=== PATIENT | female | born 1985 | race Caucasian/White ===

== ENCOUNTER 2018-12-15 19:52 | Observation (INO) | payer OTHER ==
[2018-12-15] MEDS ORDERED: Sodium Chloride 0.9% 1000 ML 1,000 ML IV STA (20:22)
--- NOTE | 2018-12-15 20:22 | ERPHSYRPT ---
- History of Present Illness Time Seen by Provider: 12/15/18 20:19 Historian: patient, family Exam Limitations: no limitations Physician History: abd pain and distension for 3 weeks worse today with diarrhea last 2 days in 33 yr old female fibroids on recent US; abd is tender LUQ no rebound Timing/Duration: week(s) Activities at Onset: none Quality: sharpness, stabbing Abdominal Pain Onset Location: LUQ, epigastric, generalized abdomen Pain Radiation: LUQ Severity of Pain-Max: moderate Severity of Pain-Current: moderate Modifying Factors: Improves With: nothing Associated Symptoms: diarrhea, nausea Previous symptoms: no prior history Allergies/Adverse Reactions: cefaclor [From Ceclor] Allergy (Verified 12/15/18 20:29) Estrogens Adverse Reaction (Mild, Verified 12/15/18 20:29) Headache Home Medications: Buspirone HCl 5 mg [Buspar 5 mg] 10 mg PO TID 12/15/18 [History] Dextroamphetamine/Amphetamine [Dextroamp-Amphetamin 15 mg Tab] 15 mg PO BID [History] Escitalopram Oxalate 10 mg [Lexapro 10 MG] 20 mg PO DAILY 12/15/18 [History] Hydrocodone/Acetaminophen [Hydrocodone-Acetamin 5-325 mg] 5 mg PO Q4HPRN PRN [History] Levothyroxine Sodium 112 Mcg [Synthroid 112 Mcg] 115 mcg PO DAILY 12/15/18 [History] Magnesium Oxide 400 mg [Mag-Ox 400] 400 mg PO HS 12/15/18 [History] Naratriptan HCl [Amerge] 2.5 mg PO UD 12/15/18 [History] PANTOPRAZOLE 40 mg Tablet [Protonix 40MG Tablet] 40 mg PO QAM 12/15/18 [ History] Promethazine HCl 25 mg [Phenergan 25 mg] 25 mg PO Q6HPRN PRN 12/15/18 [ History] Topiramate [Trokendi Xr] 150 mg PO DAILY 12/15/18 [History] Trazodone HCl 50 mg [Desyrel 50 mg] 100 mg PO HS 12/15/18 [History] Varenicline Tartrate [Chantix] 1 mg PO DAILY 12/15/18 [History] Hx Tetanus, Diphtheria Vaccination/Date Given: No Hx Influenza Vaccination/Date Given: Yes Hx Pneumococcal Vaccination/Date Given: Yes - Review of Systems Constitutional: Fever, No Chills Eyes: No Symptoms Ears, Nose, & Throat: No Symptoms Respiratory: No Cough, No Dyspnea Cardiac: No Chest Pain, No Edema, No Syncope Abdominal/Gastrointestinal: Abdominal Pain, Nausea, Diarrhea, No Vomiting Genitourinary Symptoms: No Dysuria Musculoskeletal: No Back Pain, No Neck Pain Skin: No Rash Neurological: No Dizziness, No Focal Weakness, No Sensory Changes Psychological: No Symptoms Endocrine: No Symptoms All Other Systems: Reviewed and Negative - Past Medical History Pertinent Past Medical History: Yes Neurological History: Migraines ENT History: No Pertinent History Cardiac History: No Pertinent History Respiratory History: No Pertinent History Endocrine Medical History: No Pertinent History Musculoskeletal History: No Pertinent History GI Medical History: Colitis History: No Pertinent History Psycho-Social History: Other Female Reproductive Disorders: No Pertinent History Other Medical History: migraine headaches- complex ( hx stroke like symptoms). chronic fatigue syndrome - Past Surgical History Past Surgical History: Yes Neuro Surgical History: No Pertinent History Cardiac: No Pertinent History Respiratory: No Pertinent History Gastrointestinal: Cholecystectomy Genitourinary: No Pertinent History Musculoskeletal: Orthopedic Surgery Female Surgical History: Section Other Surgical History: TONSILS AND ADENOIDS - "CRYO SURGERY" - CARPEL TUNNEL REPAIR- right. cysts removed off of ovaries. cysts removed left ear. tissue and skin graph to left ear from neck - Social History Smoking Status: Current every day smoker How long have you smoked: 16 years Exposure to second hand smoke: Yes Drug Use: none Patient Lives Alone: No - Nursing Vital Signs Nursing Vital Signs: Initial Vital Signs Temperature 98.2 F 12/15/18 19:58 Pulse Rate 67 12/15/18 19:58 Respiratory Rate 16 12/15/18 19:58 Blood Pressure 131/81 12/15/18 19:58 O2 Sat by Pulse Oximetry 100 12/15/18 19:58 Pain Scale Pain Intensity 5 - Physical Exam General Appearance: no apparent distress, alert Eye Exam: PERRL/EOMI, eyes nml inspection Ears, Nose, Throat Exam: normal ENT inspection, pharynx normal, moist mucous membranes Neck Exam: normal inspection, non-tender, supple, full range of motion Respiratory Exam: normal breath sounds, lungs clear, No respiratory distress Cardiovascular Exam: regular rate/rhythm, normal heart sounds Gastrointestinal/Abdomen Exam: soft, tenderness, distention, No mass, No pulsatile mass, No rebound Pelvic Exam: deferred Rectal Exam: deferred Back Exam: normal inspection, normal range of motion, No CVA tenderness, No vertebral tenderness Extremity Exam: normal inspection, normal range of motion, pelvis stable Neurologic Exam: alert, oriented x 3, cooperative, normal mood/affect, nml cerebellar function, sensation nml, No motor deficits Skin Exam: normal color, warm, dry - Course Nursing assessment & vital signs reviewed: Yes EKG Interpreted by Me: Sinus Rhythm, NORMAL INTERVALS, Non-specific ST Changes - CT Exams Abdomen/Pelvis CT Interpretation: Tele-radiologist Report, Normal Appendix, No appendicitis, Other (enteritis) Ordered Tests: Active Orders 24 hr Category Date Time Status EKG-ER Only STAT Care 12/15/18 20:22 Active IV Insertion STAT Care 12/15/18 20:22 Active ABDOMEN AND PELVIS W/0 CONTRAS [CT] Stat Exams 12/15/18 20:22 Taken AMYLASE Stat Lab 12/15/18 21:45 Completed CBC W DIFF Stat Lab 12/15/18 21:45 Completed CMP Stat Lab 12/15/18 21:45 Completed CULTURE,URINE Stat Lab 12/15/18 20:30 Received HCG QUALITATIVE,SERUM Stat Lab 12/15/18 21:45 Completed LIPASE Stat Lab 12/15/18 21:45 Completed Lactic Acid Stat Lab 12/15/18 21:35 Completed TROPONIN Q3H Lab 12/15/18 21:45 Completed TROPONIN Q3H Lab 12/16/18 02:30 Ordered TROPONIN Q3H Lab 12/16/18 05:30 Ordered TROPONIN Q3H Lab 12/16/18 08:30 Ordered UA W/RFX UR CULTURE Stat Lab 12/15/18 20:30 Completed Medication Summary Discontinued Medications Generic Name Dose Route Start Last Admin Trade Name Freq PRN Reason Stop Dose Admin Diphenhydramine HCl 25 mg 12/15/18 20:23 12/15/18 21:13 Benadryl 50 Mg/Ml IV 12/15/18 20:24 25 mg STAT ONE Administration Diphenhydramine HCl Confirm 12/15/18 21:09 Benadryl 50 Mg/Ml Administered 12/15/18 21:10 Dose 50 mg .ROUTE .STK-MED ONE Diphenhydramine HCl 25 mg 12/15/18 22:40 12/15/18 22:59 Benadryl 50 Mg/Ml IV 12/15/18 22:41 25 mg STAT ONE Administration Diphenhydramine HCl Confirm 12/15/18 22:58 Benadryl 50 Mg/Ml Administered 12/15/18 22:59 Dose 50 mg .ROUTE .STK-MED ONE Sodium Chloride 1,000 mls @ 999 mls/hr 12/15/18 20:22 12/15/18 22:16 Sodium Chloride 0.9% 1000 Ml IV 12/15/18 21:22 Infused .Q1H1M STA Infusion Sodium Chloride Confirm 12/15/18 21:09 Sodium Chloride 0.9% 1000 Ml Administered 12/15/18 21:10 Dose 1,000 mls @ ud .ROUTE .STK-MED ONE Morphine Sulfate 4 mg 12/15/18 20:23 12/15/18 21:13 Morphine Sulfate 4 Mg Inj IV 12/15/18 20:24 4 mg STAT ONE Administration Morphine Sulfate Confirm 12/15/18 21:09 Morphine Sulfate 4 Mg Inj Administered 12/15/18 21:10 Dose 4 mg .ROUTE .STK-MED ONE Morphine Sulfate 4 mg 12/15/18 22:40 12/15/18 22:59 Morphine Sulfate 4 Mg Inj IV 12/15/18 22:41 4 mg STAT ONE Administration Morphine Sulfate Confirm 12/15/18 22:58 Morphine Sulfate 4 Mg Inj Administered 12/15/18 22:59 Dose 4 mg .ROUTE .STK-MED ONE Ondansetron HCl 4 mg 12/15/18 20:23 12/15/18 21:13 Zofran 4 Mg/2 Ml Vial IV 12/15/18 20:24 4 mg STAT ONE Administration Ondansetron HCl Confirm 12/15/18 21:09 Zofran 4 Mg/2 Ml Vial Administered 12/15/18 21:10 Dose 4 mg .ROUTE .STK-MED ONE Lab/Rad Data: Laboratory Result Diagrams 12/15/18 21:45 12/15/18 21:45 Laboratory Results 12/15/18 12/15/18 12/15/18 Range/Units 21:45 21:45 21:45 WBC (4.0-10.5) K/mm3 RBC (4.1-5.4) M/mm3 Hgb (12.0-16.0) gm/dl Hct (35-47) % MCV (78-100) fl MCH (26-32) pg MCHC (32-36) g/dl RDW (11.5-14.0) % Plt Count (150-450) K/mm3 MPV (6-9.5) fl Gran % (36.0-66.0) % Eos # (Auto) (0-0.5) Absolute Lymphs (auto) (1.0-4.6) Absolute Monos (auto) (0.0-1.3) Lymphocytes % (24.0-44.0) % Monocytes % (0.0-12.0) % Eosinophils % (0.00-5.0) % Basophils % (0.0-0.4) % Absolute Granulocytes (1.4-6.9) Basophils # (0-0.4) Sodium 141 (137-145) mmol/L Potassium 3.6 (3.5-5.1) mmol/L Chloride 110 H (98-107) mmol/L Carbon Dioxide 21 L (22-30) mmol/L Anion Gap 12.9 (5-15) MEQ/L BUN 7 (7-17) mg/dL Creatinine 0.54 (0.52-1.04) mg/dL Estimated GFR > 60.0 ML/MIN Glucose 93 (74-106) mg/dL Lactic Acid (0.4-2.0) Calcium 8.5 (8.4-10.2) mg/dL Total Bilirubin 0.20 (0.2-1.3) mg/dL AST 15 (14-36) U/L ALT 13 (0-35) U/L Alkaline Phosphatase 60 (38-126) U/L Troponin I < 0.012 (0.000-0.034) ng/mL Serum Total Protein 7.2 (6.3-8.2) g/dL Albumin 4.1 (3.5-5.0) g/dL Amylase 55 (30-110) U/L Lipase 62 (23-300) U/L Serum , Qual NEGATIVE (Negative) Urine Color (YELLOW) Urine Appearance (CLEAR) Urine pH (5-6) Ur Specific Bliss (1.005-1.025) Urine Protein (Negative) Urine Ketones (NEGATIVE) Urine Blood (0-5) Jamie/ul Urine Nitrite (NEGATIVE) Urine Bilirubin (NEGATIVE) Urine Urobilinogen (0-1) mg/dL Ur Leukocyte Esterase (NEGATIVE) Urine WBC (Auto) (0-5) /HPF Urine RBC (Auto) (0-2) /HPF U Epithel Cells (Auto) (FEW) /HPF Urine Bacteria (Auto) (NEGATIVE) /HPF Urine Mucus (Auto) (NEGATIVE) /HPF Urine Culture Reflexed (NO) Urine Glucose (NEGATIVE) mg/dL 12/15/18 12/15/18 12/15/18 Range/Units 21:45 21:35 20:30 WBC 7.3 (4.0-10.5) K/mm3 RBC 3.79 L (4.1-5.4) M/mm3 Hgb 11.7 L (12.0-16.0) gm/dl Hct 35.8 (35-47) % MCV 94.5 (78-100) fl MCH 30.8 (26-32) pg MCHC 32.7 (32-36) g/dl RDW 13.4 (11.5-14.0) % Plt Count 309 (150-450) K/mm3 MPV 8.5 (6-9.5) fl Gran % 49.9 (36.0-66.0) % Eos # (Auto) 0.14 (0-0.5) Absolute Lymphs (auto) 2.85 (1.0-4.6) Absolute Monos (auto) 0.64 (0.0-1.3) Lymphocytes % 39.1 (24.0-44.0) % Monocytes % 8.8 (0.0-12.0) % Eosinophils % 1.9 (0.00-5.0) % Basophils % 0.3 (0.0-0.4) % Absolute Granulocytes 3.64 (1.4-6.9) Basophils # 0.02 (0-0.4) Sodium (137-145) mmol/L Potassium (3.5-5.1) mmol/L Chloride (98-107) mmol/L Carbon Dioxide (22-30) mmol/L Anion Gap (5-15) MEQ/L BUN (7-17) mg/dL Creatinine (0.52-1.04) mg/dL Estimated GFR ML/MIN Glucose (74-106) mg/dL Lactic Acid 0.9 (0.4-2.0) Calcium (8.4-10.2) mg/dL Total Bilirubin (0.2-1.3) mg/dL AST (14-36) U/L ALT (0-35) U/L Alkaline Phosphatase (38-126) U/L Troponin I (0.000-0.034) ng/mL Serum Total Protein (6.3-8.2) g/dL Albumin (3.5-5.0) g/dL Amylase (30-110) U/L Lipase (23-300) U/L Serum , Qual (Negative) Urine Color YELLOW (YELLOW) Urine Appearance SLIGHTLY CLOUDY (CLEAR) Urine pH 6.0 (5-6) Ur Specific Bliss 1.016 (1.005-1.025) Urine Protein NEGATIVE (Negative) Urine Ketones NEGATIVE (NEGATIVE) Urine Blood SMALL (0-5) Jamie/ul Urine Nitrite NEGATIVE (NEGATIVE) Urine Bilirubin NEGATIVE (NEGATIVE) Urine Urobilinogen NEGATIVE (0-1) mg/dL Ur Leukocyte Esterase TRACE (NEGATIVE) Urine WBC (Auto) NONE (0-5) /HPF Urine RBC (Auto) 0-2 (0-2) /HPF U Epithel Cells (Auto) RARE (FEW) /HPF Urine Bacteria (Auto) NONE (NEGATIVE) /HPF Urine Mucus (Auto) SLIGHT (NEGATIVE) /HPF Urine Culture Reflexed YES (NO) Urine Glucose NEGATIVE (NEGATIVE) mg/dL - Progress Progress: improved, re-examined Progress Note: 12/15/18 23:30 pt still has some pain but is better - discussed findings with pt and Dr Romero covering and all agree best for pt to be in on obs and begin ab . Counseled pt/family regarding: lab results, diagnosis, need for follow-up, rad results - Departure Departure Disposition: Observation Clinical Impression: Abdominal pain, Enteritis, Intractable abdominal pain, Renal calculus, bilateral Condition: Good Critical Care Time: No Referrals: LUZ ELENA AMOR MD [Primary Care Provider] -
[2018-12-15] MEDS ORDERED: BENADRYL 50 MG/ML IV ONE ×2 (20:23→22:40)
[2018-12-15] MEDS ORDERED: MORPHINE SULFATE 4 MG INJ IV ONE ×2 (20:23→22:40)
[2018-12-15] MEDS ORDERED: Zofran 4 MG/2 ML VIAL IV ONE (20:23)
[2018-12-15 20:42] LABS: Appearance SLIGHTLY CLOUDY (CLEAR); Bilirubin NEGATIVE (NEGATIVE); Blood SMALL Ery/ul (0-5); Epithelial Cells RARE /HPF (FEW); Glucose NEGATIVE (NEGATIVE); Ketones NEGATIVE (NEGATIVE); Leukocyte Esterase TRACE (NEGATIVE); Mucus SLIGHT /HPF (NEGATIVE); Nitrite NEGATIVE (NEGATIVE); Protein,Urine Dip NEGATIVE (Negative); RBC 0-2 /HPF (0-2); Specific Gravity 1.016 (1.005-1.025); Urobilinogen NEGATIVE mg/dL (0-1)
[2018-12-15] MEDS ORDERED: MORPHINE SULFATE 4 MG INJ ONE ×2 (21:09→22:58)
[2018-12-15] MEDS ORDERED: BENADRYL 50 MG/ML ONE ×2 (21:09→22:58)
[2018-12-15] MEDS ORDERED: Sodium Chloride 0.9% 1000 ML 1,000 ML ONE (21:09)
[2018-12-15] MEDS ORDERED: Zofran 4 MG/2 ML VIAL ONE (21:09)
[2018-12-15 21:44] LABS: BASOPHIL % 0.3 % (0.0-0.4); Basophil (Absolute #) 0.02 (0-0.4); Eosinophil % 1.9 % (0.00-5.0); Eosinophil (Absolute #) 0.14 (0-0.5); Granulocyte Absolute (ANC) 3.64 (1.4-6.9); Granulocytes % 49.9 % (36.0-66.0); Hematocrit 35.8 % (35-47); Hemoglobin 11.7 gm/dl (12.0-16.0); Lymphocyte (Absolute #) 2.85 (1.0-4.6); Lymphocytes % 39.1 % (24.0-44.0); Mean Cell Volume 94.5 fl (78-100); Mean Corpuscular Hgb Concent. 32.7 g/dl (32-36); Mean Platelet Volume 8.5 fl (6-9.5); Monocyte (Absolute #) 0.64 (0.0-1.3); Monocytes % 8.8 % (0.0-12.0); Platelet Count 309 K/mm3 (150-450); Red Blood Count 3.79 M/mm3 (4.1-5.4); Red Cell Distribution Width 13.4 % (11.5-14.0); White Blood Count 7.3 K/mm3 (4.0-10.5)
[2018-12-15 21:47] LABS: Mean Corpuscular Hemoglobin 30.8 pg (26-32)
[2018-12-15 21:58] LABS: ALBUMIN 4.1 g/dL (3.5-5.0); ALKALINE PHOSPHATASE 60 U/L (38-126); AMYLASE 55 U/L (30-110); ANION GAP 12.9 MEQ/L (5-15); BLOOD UREA NITROGEN 7 mg/dL (7-17); CHLORIDE 110 mmol/L (98-107); Calcium 8.5 mg/dL (8.4-10.2); Carbon Dioxide 21 mmol/L (22-30); Creatinine 1 0.54 mg/dL (0.52-1.04); Glucose 93 mg/dL (74-106); LIPASE 62 U/L (23-300); Potassium 3.6 mmol/L (3.5-5.1); SGOT/AST 15 U/L (14-36); SGPT/ALT 13 U/L (0-35); SODIUM 141 mmol/L (137-145); Total Protein 7.2 g/dL (6.3-8.2)
[2018-12-16] MEDS ORDERED: NovoLIN R SQ PRN (00:46)
[2018-12-16] MEDS: Sodium Chloride 0.9% 1000 ML 1,000 ML IV SCH ×2 (01:06→08:37)
[2018-12-16] MEDS: FLAGYL 500 MG IVPB 500 MG/100 ML BAG IV SCH ×4 (01:06→18:34)
[2018-12-16] MEDS: Lexapro 10 MG PO SCH ×2 (01:50→22:43)
[2018-12-16] MEDS: DESYREL 50 MG PO SCH ×2 (01:51→22:42)
[2018-12-16] MEDS: BUSPAR 5 MG PO SCH ×4 (01:51→22:39)
[2018-12-16] MEDS: MAG-OX 400 PO SCH ×2 (01:51→22:43)
[2018-12-16] MEDS: Topamax 100 MG PO SCH ×2 (01:52→22:43)
[2018-12-16 06:13] LABS: BASOPHIL % 0.3 % (0.0-0.4); Basophil (Absolute #) 0.02 (0-0.4); Eosinophil % 2.1 % (0.00-5.0); Eosinophil (Absolute #) 0.16 (0-0.5); Granulocyte Absolute (ANC) 3.83 (1.4-6.9); Hematocrit 32.9 % (35-47); Hemoglobin 10.9 gm/dl (12.0-16.0); Lymphocyte (Absolute #) 3.06 (1.0-4.6); Lymphocytes % 39.9 % (24.0-44.0); Mean Corpuscular Hemoglobin 31.1 pg (26-32); Mean Corpuscular Hgb Concent. 33.1 g/dl (32-36); Mean Platelet Volume 8.7 fl (6-9.5); Monocyte (Absolute #) 0.59 (0.0-1.3); Monocytes % 7.7 % (0.0-12.0); Platelet Count 306 K/mm3 (150-450); Red Cell Distribution Width 13.2 % (11.5-14.0); White Blood Count 7.7 K/mm3 (4.0-10.5)
[2018-12-16 06:26] LABS: ALBUMIN 3.6 g/dL (3.5-5.0); ALKALINE PHOSPHATASE 53 U/L (38-126); BLOOD UREA NITROGEN 6 mg/dL (7-17); CHLORIDE 112 mmol/L (98-107); Calcium 8.1 mg/dL (8.4-10.2); Carbon Dioxide 19 mmol/L (22-30); Creatinine 1 0.52 mg/dL (0.52-1.04); Glucose 69 mg/dL (74-106); Potassium 3.6 mmol/L (3.5-5.1); SGOT/AST 15 U/L (14-36); SGPT/ALT 13 U/L (0-35); SODIUM 140 mmol/L (137-145); Total Protein 6.5 g/dL (6.3-8.2)
--- NOTE | 2018-12-16 09:48 | XRAY ---
Indication: Abdomen pain and distention. Multiple contiguous axial images obtained through the abdomen and pelvis without contrast as ordered. Comparison: September 26, 2014. Lung bases demonstrates minimal bibasilar dependent atelectasis. No infiltrate or effusion. Heart is not enlarged. Noncontrasted stomach and bowel loops appear nonobstructed. Normal appendix. Again previous cholecystectomy. No free fluid/air. Nonobstructing bilateral renal microcalculi, potentially obscured on previous contrasted exam. Remaining liver, pancreas, spleen adrenal glands, kidneys, ureters, bladder, uterus, and aorta appear unremarkable for noncontrast exam. Osseous structures intact. No ventral or inguinal hernias. Impression: 1. Nonobstructing bilateral renal microcalculi. 2. Remaining CT abdomen/pelvis without contrast exam is negative. Comment: Preliminary interpretation was made by [facility]. No critical discrepancy. CTDI 17.87
[2018-12-16] MEDS ORDERED: LEVOFLOXACIN 750MG/150ML D5W 750 MG/150 ML BAG IV SCH (10:00)
[2018-12-16] MEDS: Zofran 4 MG/2 ML VIAL IV PRN ×2 (10:14→15:56)
[2018-12-16] MEDS: MORPHINE SULFATE 4 MG INJ IV PRN ×2 (10:14→15:55)
[2018-12-16] MEDS ORDERED: PHENERGAN 25 MG PO PRN (10:38)
[2018-12-16] MEDS ORDERED: NON-FORMULARY ITEM (Naratriptan Hcl [Amerge] 2.5 MG) PO SCH (10:45)
[2018-12-16] MEDS ORDERED: MEDICATION INTERVENTION MC SCH ×2 (11:00)
[2018-12-16] MEDS ORDERED: SYNTHROID 112 MCG PO SCH (11:00)
[2018-12-16] MEDS: [UNRECOGNIZED DRUG - OTHER] PO SCH ×3 (11:14→23:48)
[2018-12-16] MEDS: AMPHETAMINE PO SCH ×3 (11:14→23:48)
[2018-12-16] MEDS: DEXTROAMPHETAMINE PO SCH ×3 (11:14→23:48)
[2018-12-16] MEDS: SYNTHROID 150 MCG PO SCH (11:45)
[2018-12-16] MEDS: Protonix 40MG Tablet PO SCH (11:45)
[2018-12-16] MEDS: PATIENT OWN MEDICATION PO SCH ×2 (11:45→22:59)
[2018-12-16 20:03] LABS: C. Difficile Organism NEGATIVE (NEGATIVE); Campylobacter NEGATIVE (NEGATIVE); Salmonella NEGATIVE (NEGATIVE)
[2018-12-16 20:04] LABS: Adenovirus F 40/41 NEGATIVE (NEGATIVE); Astrovirus NEGATIVE (NEGATIVE); Cyclospora cayentanensis NEGATIVE (NEGATIVE); Entamoeaba histolytica NEGATIVE (NEGATIVE); Enteroaggregative E.coli NEGATIVE (NEGATIVE); Giardia lamblia NEGATIVE (NEGATIVE); Rotavirus A NEGATIVE (NEGATIVE); Sapovirus NEGATIVE (NEGATIVE); Shiga-like toxin prod.E.coli NEGATIVE (NEGATIVE); Vibrio NEGATIVE (NEGATIVE)
[2018-12-16] MEDS: LEVOFLOXACIN 750MG/150ML D5W 750 MG/150 ML BAG IV SCH (22:40)
[2018-12-17] MEDS: FLAGYL 500 MG IVPB 500 MG/100 ML BAG IV SCH ×4 (00:33→18:13)
[2018-12-17] MEDS: Sodium Chloride 0.9% 1000 ML 1,000 ML IV SCH ×2 (03:34→14:45)
[2018-12-17] MEDS: MORPHINE SULFATE 4 MG INJ IV PRN ×2 (05:47→14:38)
--- NOTE | 2018-12-17 08:16 | PCM.NOTE ---
Date and Time: 12/17/18 08 Subjective Assessment: patient doing a little better today, had 13 stools yesterday. abdomen is much less distended and pain seems improved. Objective Exam General Appearance: no apparent distress, alert Skin Exam: normal color, warm, dry Respiratory Exam: normal breath sounds, lungs clear, No respiratory distress Cardiovascular Exam: regular rate/rhythm, normal heart sounds Gastrointestinal/Abdomen Exam: soft, No tenderness, No mass Extremity Exam: normal inspection, normal range of motion OBJECTIVE DATA Vital Signs: Vital Signs - 24 hr Temp Pulse Resp BP Pulse Ox 12/17/18 07:35 98.3 F 79 16 89/55 97 12/17/18 00:00 97.7 F 68 13 131/56 96 12/16/18 20:00 98.7 F 67 16 114/61 99 12/16/18 16:00 98.4 F 60 18 123/74 99 12/16/18 12:00 98.4 F 78 18 105/59 100 Pain Assessment - Last Documented Pain Intensity 8 Pain Scale Used 0-10 Pain Scale Intake and Output: Intake & Output 12/14/18 12/15/18 12/16/18 12/17/18 11:59 11:59 11:59 11:59 Intake Total 1096 600 Output Total 400 2600 Balance 696 -2000 Weight 82 kg 82.8 kg Lab Results: Lab Results-Last 24 Hours 12/16/18 12/16/18 Range/Units 17:58 18:42 Stool Occult Blood NEGATIVE (Negative) Stl C. cayetanensis PCR NEGATIVE (NEGATIVE) Stl Adenov F 40/41 PCR NEGATIVE (NEGATIVE) Stool Astrovirus (PCR) NEGATIVE (NEGATIVE) Stool Cryptosporidium PCR NEGATIVE (NEGATIVE) Stool EPEC (PCR) NEGATIVE (NEGATIVE) Stool EAEC (PCR) NEGATIVE (NEGATIVE) Stl E. histolytica PCR NEGATIVE (NEGATIVE) Stl P. shigelloides PCR NEGATIVE (NEGATIVE) Stool Sapovirus (PCR) NEGATIVE (NEGATIVE) St Y.enterocolitica PCR NEGATIVE (NEGATIVE) Stool Vibrio (PCR) NEGATIVE (NEGATIVE) Stl Vibrio cholerae PCR NEGATIVE (NEGATIVE) Stl Norovirus GI/GII PCR NEGATIVE (NEGATIVE) Campylobacter (PCR) NEGATIVE (NEGATIVE) C. difficile Toxin A&B NEGATIVE (NEGATIVE) Enterotoxigenic E. coli NEGATIVE (NEGATIVE) E.coli Shiga Toxins NEGATIVE (NEGATIVE) Giardia lamblia NEGATIVE (NEGATIVE) Rotavirus A (PCR) NEGATIVE (NEGATIVE) Salmonella (PCR) NEGATIVE (NEGATIVE) Shigella (PCR) NEGATIVE (NEGATIVE) Radiology Exams: Radiology Procedures Category Date Time Status ABDOMEN AND PELVIS W/0 CONTRAS [CT] Stat Exams 12/15/18 20:22 Completed Assessment/Plan (1) Enteritis Current Visit: Yes Status: Acute Assessment & Plan: continue fluids, levaquin and flagyl at this time. stool culture is negative Code(s): K52.9 - NONINFECTIVE GASTROENTERITIS AND COLITIS, UNSPECIFIED (2) Abdominal pain Current Visit: Yes Status: Acute Code(s): R10.9 - UNSPECIFIED ABDOMINAL PAIN
[2018-12-17] MEDS: PATIENT OWN MEDICATION PO SCH (09:19)
[2018-12-17] MEDS: BUSPAR 5 MG PO SCH ×3 (09:19→22:37)
[2018-12-17] MEDS: Protonix 40MG Tablet PO SCH (09:19)
[2018-12-17] MEDS: SYNTHROID 150 MCG PO SCH (09:19)
[2018-12-17] MEDS: [UNRECOGNIZED DRUG - OTHER] PO SCH ×2 (09:21→11:15)
[2018-12-17] MEDS: AMPHETAMINE PO SCH ×2 (09:21→11:15)
[2018-12-17] MEDS: DEXTROAMPHETAMINE PO SCH ×2 (09:21→11:15)
[2018-12-17] MEDS ORDERED: NON-FORMULARY ITEM (Varenicline Tartrate [Chantix] 1 MG) PO SCH (10:00)
--- NOTE | 2018-12-17 10:45 | HP ---
HISTORY OF PRESENT ILLNESS: This is a 33 year-old patient of Dr. Schuster who presented to the emergency department. She reports that she has had abdominal pain for the past week which she thought was due to her uterine fibroid. She also reports feeling like her abdomen is distended like she is nine months . Monday morning she started to have diarrhea that looked leslye and oily. She reports that she also had lower abdominal pain that was worse on the left side and kept getting worse so she decided to come into the emergency department. She reports the pain radiated to her back. She put herself on clear liquid diet but was still having problems with diarrhea, abdominal pain as well as nausea. She denies any vomiting. She reports her highest temperature at home was 99.8F. She denies any sick contacts. Her only travel was to [facility] Monday through Monday as her daughter had broken her arm. She reports she does not have regular periods because she had a uterine ablation but she noticed a large blood clot from her vagina on Monday. REVIEW OF SYSTEMS: As noted in the history of present illness. PAST MEDICAL HISTORY: Chronic fatigue syndrome. Hypothyroidism after thyroidectomy. Migraine. Anxiety. PAST SURGICAL HISTORY: Cholecystectomy. Total thyroid removal. Uterine thermal ablation. Tonsillectomy and adenoidectomy. section x3. Carpal tunnel surgery. HOME MEDICATIONS: Please see the medication reconciliation sheet which I reviewed. ALLERGIES: CEFACLOR, ESTROGEN. SOCIAL HISTORY: Her three children and significant other live with her. She reports she is trying to quit smoking by taking Chantix. She drinks alcohol one time per month. FAMILY HISTORY: Her mother is living and had uterine cancer and had multiple stomach problems. Her father is living and has bowel issues as well. PHYSICAL EXAMINATION: VITAL SIGNS: Temperature current 97.9F, temperature max 98.2F, heart rate 67 to 78, respiratory rate 16 to 18, blood pressure 94 to 121 over 55 to 84. Oxygen saturation 99% on room air. GENERAL: The patient is a pleasant talkative lady lying in bed in no acute distress. CVS: She has a regular rate and rhythm. No murmurs, gallops or rubs. ABDOMEN: She has hyperactive bowel sounds, mild tenderness in the right and left lower quadrant. No guarding. No rigidity. EXTREMITIES: No clubbing, cyanosis or edema. SKIN: Warm, dry and intact. LABORATORY DATA AND TESTS: On admission her white blood cell count was 7.3, hemoglobin 11.7, PLT count 309,000. CMP carbon dioxide 19, glucose 69. UA negative. Urine culture in lab. She had CT scan of her abdomen and pelvis which was read as dilated small bowel loops. Please see the radiologist dictation for the full report. ASSESSMENT AND PLAN: 1) ENTERITIS: Will continue with clear fluids as tolerated. I have ordered a GI panel as well as stool for occult blood. She reported she had a colonoscopy two years ago with Dr. Benton. Will continue with IV fluids and pain management. 2) HYPOTHYROIDISM: Will continue the home dose of levothyroxine. 3) CHRONIC FATIGUE: Continue her home medications.
[2018-12-17] MEDS: Lexapro 10 MG PO SCH (22:35)
[2018-12-17] MEDS: DESYREL 50 MG PO SCH (22:36)
[2018-12-17] MEDS: Topamax 100 MG PO SCH (22:37)
[2018-12-17] MEDS: MAG-OX 400 PO SCH (22:38)
[2018-12-17] MEDS: LEVOFLOXACIN 750MG/150ML D5W 750 MG/150 ML BAG IV SCH (22:38)
[2018-12-18] MEDS: FLAGYL 500 MG IVPB 500 MG/100 ML BAG IV SCH ×4 (00:43→18:20)
[2018-12-18] MEDS: NORCO 5/325 MG PO PRN ×2 (01:00→21:21)
[2018-12-18] MEDS: Sodium Chloride 0.9% 1000 ML 1,000 ML IV SCH (03:41)
[2018-12-18] MEDS: [UNRECOGNIZED DRUG - OTHER] PO SCH ×2 (08:35→12:18)
[2018-12-18] MEDS: DEXTROAMPHETAMINE PO SCH ×2 (08:35→12:18)
[2018-12-18] MEDS: AMPHETAMINE PO SCH ×2 (08:35→12:18)
[2018-12-18] MEDS: BUSPAR 5 MG PO SCH ×3 (09:11→21:20)
[2018-12-18] MEDS: Acidophilus TABLET PO SCH (09:12)
[2018-12-18] MEDS: SYNTHROID 150 MCG PO SCH (09:12)
[2018-12-18] MEDS: Protonix 40MG Tablet PO SCH (09:12)
[2018-12-18] MEDS: PATIENT OWN MEDICATION PO SCH (09:12)
--- NOTE | 2018-12-18 09:17 | PCM.NOTE ---
Date and Time: 12/18/18912 Subjective Assessment: Pt slept last night form 2 am on, but had 10 stools yesterday and last night. C /o lower abd pain that is constant, and sometimes worse in RLQ. 4-9/10. Per RN she passed 2 kidney stones yesterday. Tolerating po but has diarrhea after eating. - Review of Systems Constitutional: No Fever Abdominal/Gastrointestinal: Abdominal Pain, Diarrhea Objective Exam General Appearance: no apparent distress, alert (wakes to touch) Neurologic Exam: oriented x 3, cooperative Skin Exam: normal color, warm, dry, No rash Ears, Nose, Throat Exam: moist mucous membranes Respiratory Exam: normal breath sounds, lungs clear, No crackles/rales, No rhonchi, No wheezing Cardiovascular Exam: regular rate/rhythm, normal heart sounds, No murmur Gastrointestinal/Abdomen Exam: soft, tenderness (RLQ, marked), rebound (RLQ), No normal bowel sounds (hypoactive but present), No distention, No mass, No guarding Extremity Exam: normal inspection, No pedal edema, No swelling Back Exam: normal inspection, No rash OBJECTIVE DATA Vital Signs: Vital Signs - 24 hr Temp Pulse Resp BP Pulse Ox 12/18/18 06:52 98.6 F 77 18 96/56 97 12/18/18 03:00 99 F 69 18 96/55 97 12/17/18 23:00 99.6 F 71 18 118/69 97 12/17/18 19:00 99.5 F 70 16 111/62 98 12/17/18 15:15 97.8 F 63 18 114/56 96 12/17/18 11:36 97.9 F 71 16 82/50 97 Pain Assessment - Last Documented Pain Intensity 5 Pain Scale Used 0-10 Pain Scale Intake and Output: Intake & Output 12/15/18 12/16/18 12/17/18 12/18/18 11:59 11:59 11:59 11:59 Intake Total 1096 4163 2376 Output Total 400 2600 2750 Balance 696 1563 -374 Weight 82 kg 82.8 kg 81 kg Assessment/Plan (1) Enteritis Current Visit: Yes Status: Acute Assessment & Plan: No distinct findings on CT; wonder if could have reactive colitis d/t renal stones. Day #3 of levaquin and flagyl. Tolerating po well but still having stools (although slightly less than the previous day). Rechecking labs; if elevated WBC would consider re-CT in light of rebound tenderness to recheck her appendix. Code(s): K52.9 - NONINFECTIVE GASTROENTERITIS AND COLITIS, UNSPECIFIED (2) Renal calculus, bilateral Current Visit: Yes Status: Acute Assessment & Plan: Continue to observe for passed stones. Code(s): N20.0 - CALCULUS OF KIDNEY
[2018-12-18 10:27] LABS: ALBUMIN 3.2 g/dL (3.5-5.0); ALKALINE PHOSPHATASE 49 U/L (38-126); ANION GAP 14.1 MEQ/L (5-15); BILIRUBIN,TOTAL < 0.10 mg/dL (0.2-1.3); BLOOD UREA NITROGEN 9 mg/dL (7-17); CHLORIDE 113 mmol/L (98-107); Calcium 8.1 mg/dL (8.4-10.2); Carbon Dioxide 17 mmol/L (22-30); Glucose 115 mg/dL (74-106); Potassium 3.5 mmol/L (3.5-5.1); SGOT/AST 15 U/L (14-36); SGPT/ALT 15 U/L (0-35); SODIUM 141 mmol/L (137-145)
[2018-12-18] MEDS ORDERED: Sodium Chloride 0.9% 1000 ML 1,000 ML IV STA (10:41)
[2018-12-18 10:55] LABS: Hematocrit 33.8 % (35-47); Mean Cell Volume 95.2 fl (78-100); Mean Corpuscular Hgb Concent. 32.5 g/dl (32-36); Mean Platelet Volume 8.9 fl (6-9.5); Platelet Count 289 K/mm3 (150-450); Red Blood Count 3.55 M/mm3 (4.1-5.4); Red Cell Distribution Width 13.3 % (11.5-14.0); White Blood Count 7.5 K/mm3 (4.0-10.5)
[2018-12-18 10:59] LABS: Mean Corpuscular Hemoglobin 30.9 pg (26-32)
[2018-12-18] MEDS: Lactated Ringers 1,000 ML IV SCH (12:18)
[2018-12-18] MEDS: LEVOFLOXACIN 750MG/150ML D5W 750 MG/150 ML BAG IV SCH (21:17)
[2018-12-18] MEDS: Topamax 100 MG PO SCH (21:18)
[2018-12-18] MEDS: MAG-OX 400 PO SCH (21:18)
[2018-12-18] MEDS: Lexapro 10 MG PO SCH (21:19)
[2018-12-18] MEDS: DESYREL 50 MG PO SCH (21:20)
[2018-12-19] MEDS: FLAGYL 500 MG IVPB 500 MG/100 ML BAG IV SCH ×3 (02:26→11:08)
[2018-12-19] MEDS: Lactated Ringers 1,000 ML IV SCH (04:03)
[2018-12-19 05:36] LABS: ALBUMIN 3.5 g/dL (3.5-5.0); ALKALINE PHOSPHATASE 52 U/L (38-126); ANION GAP 13.4 MEQ/L (5-15); BLOOD UREA NITROGEN 10 mg/dL (7-17); CHLORIDE 112 mmol/L (98-107); Calcium 8.7 mg/dL (8.4-10.2); Carbon Dioxide 18 mmol/L (22-30); Glucose 87 mg/dL (74-106); Potassium 3.7 mmol/L (3.5-5.1); SGOT/AST 16 U/L (14-36); SGPT/ALT 13 U/L (0-35); SODIUM 139 mmol/L (137-145); Total Protein 6.4 g/dL (6.3-8.2)
--- NOTE | 2018-12-19 08:27 | PCM.NOTE ---
Date and Time: 12/19/18824 Subjective Assessment: patient continues to complain of abdominal pain, in right lower, left lower and right upper abdomen. her diarrhea is improving, she reports passing small kidney stones although there were no ureteral stones on ct scan. Objective Exam General Appearance: no apparent distress, alert Neurologic Exam: alert, oriented x 3, cooperative, normal mood/affect, nml cerebellar function, sensation nml, No motor deficits Skin Exam: normal color, warm, dry Respiratory Exam: normal breath sounds, lungs clear, No respiratory distress Cardiovascular Exam: regular rate/rhythm Gastrointestinal/Abdomen Exam: soft, normal bowel sounds, tenderness (left lower , right lower and right upper abdomen mildly tender), No guarding, No rebound Extremity Exam: normal inspection, normal range of motion OBJECTIVE DATA Vital Signs: Vital Signs - 24 hr Temp Pulse Resp BP Pulse Ox 12/19/18 07:24 98 F 70 18 108/69 97 12/19/18 03:00 97.6 F 64 18 99/57 94 L 12/18/18 23:00 98.3 F 65 16 113/64 98 12/18/18 19:00 98.8 F 82 18 120/73 99 12/18/18 15:00 98.4 F 80 18 111/65 95 12/18/18 11:00 76 18 103/56 97 Pain Assessment - Last Documented Pain Intensity 7 Pain Scale Used [employer] Intake and Output: Intake & Output 12/16/18 12/17/18 12/18/18 12/19/18 11:59 11:59 11:59 11:59 Intake Total 1096 4163 2376 3548 Output Total 400 2600 3550 2900 Balance 696 1563 -1174 648 Weight 82 kg 82.8 kg 81 kg 81.2 kg Lab Results: Lab Results-Last 24 Hours 12/18/18 12/18/18 12/19/18 Range/Units 09:35 10:41 04:40 WBC 7.5 (4.0-10.5) K/mm3 RBC 3.55 L (4.1-5.4) M/mm3 Hgb 11.0 L (12.0-16.0) gm/dl Hct 33.8 L (35-47) % MCV 95.2 (78-100) fl MCH 30.9 (26-32) pg MCHC 32.5 (32-36) g/dl RDW 13.3 (11.5-14.0) % Plt Count 289 (150-450) K/mm3 MPV 8.9 (6-9.5) fl Sodium 141 139 (137-145) mmol/L Potassium 3.5 3.7 (3.5-5.1) mmol/L Chloride 113 H 112 H (98-107) mmol/L Carbon Dioxide 17 L 18 L (22-30) mmol/L Anion Gap 14.1 13.4 (5-15) MEQ/L BUN 9 10 (7-17) mg/dL Creatinine 0.60 0.60 (0.52-1.04) mg/dL Estimated GFR > 60.0 > 60.0 ML/MIN Glucose 115 H 87 (74-106) mg/dL Calcium 8.1 L 8.7 (8.4-10.2) mg/dL Total Bilirubin < 0.10 L 0.10 L (0.2-1.3) mg/dL AST 15 16 (14-36) U/L ALT 15 13 (0-35) U/L Alkaline Phosphatase 49 52 (38-126) U/L Serum Total Protein 6.0 L 6.4 (6.3-8.2) g/dL Albumin 3.2 L 3.5 (3.5-5.0) g/dL TSH 3rd Generation 13.700 H (0.47-4.68) mIU/L Assessment/Plan (1) Enteritis Current Visit: Yes Status: Acute Assessment & Plan: on levaquin and flagyl, stool dna specimen negative. labs reassuring other than elevated tsh, she is on synthroid and will need repeated when not hospitalized. no obvious cause, advised to make npo and get surgical consult. would have to consider IBD, will get esr, crp and check IBD panel. Code(s): K52.9 - NONINFECTIVE GASTROENTERITIS AND COLITIS, UNSPECIFIED (2) Abdominal pain Current Visit: Yes Status: Acute Code(s): R10.9 - UNSPECIFIED ABDOMINAL PAIN
[2018-12-19] MEDS: BUSPAR 5 MG PO SCH ×2 (08:48→15:34)
[2018-12-19] MEDS: [UNRECOGNIZED DRUG - OTHER] PO SCH ×2 (08:48→11:08)
[2018-12-19] MEDS: DEXTROAMPHETAMINE PO SCH ×2 (08:48→11:08)
[2018-12-19] MEDS: AMPHETAMINE PO SCH ×2 (08:48→11:08)
[2018-12-19] MEDS: Acidophilus TABLET PO SCH (08:48)
[2018-12-19] MEDS: PATIENT OWN MEDICATION PO SCH (08:48)
[2018-12-19] MEDS: SYNTHROID 150 MCG PO SCH (08:48)
[2018-12-19] MEDS: Protonix 40MG Tablet PO SCH (08:48)
[2018-12-19] MEDS: NORCO 5/325 MG PO PRN (12:42)
[2018-12-19] MEDS ORDERED: DIFLUCAN PO ONE (16:00)
--- NOTE | 2018-12-19 16:13 | PCM.DS ---
Discharge Summary Date of Admission: 12/16/18 00:25 Admitting Physician: LUZ ELENA AMOR Consults: Consults on Case 12/19/18 08:57 Consult Surgery ROUTINE Primary Care Provider: LUZ ELENA AMOR Allergies Allergies cefaclor [From Ceclor] Allergy (Verified 12/15/18 20:29) Estrogens Adverse Reaction (Mild, Verified 12/15/18 20:29) Headache Hospital Summary - Hospital Course Hospital Course: was admitted with abdominal pain and diarrhea, ct scan showed enteritis and nothing acute, pain has improved. she has passed small renal calculi, she is toleraring po intake, esr was normal. IBD panel is pending, will see Dr Kate as an outpatient due to pain and no obvious etiology of diarrhea, gi pathogen panel was negative. - Vitals & Intake/Output Vital Signs: Vital Signs Temperature 98.4 F 12/19/18 12:22 Pulse Rate 68 12/19/18 12:22 Respiratory Rate 18 12/19/18 12:22 Blood Pressure 90/53 12/19/18 12:22 O2 Sat by Pulse Oximetry 98 12/19/18 12:22 Intake & Output: Intake & Output 12/17/18 12/18/18 12/19/18 12/20/18 11:59 11:59 11:59 11:59 Intake Total 4163 2376 3548 0 Output Total 2600 3550 2900 200 Balance 1563 -1174 648 -200 Weight 82.8 kg 81 kg 81.2 kg - Lab Result Diagrams: 12/18/18 10:41 12/19/18 04:40 Lab Results-Last 24 Hrs: Lab Results-Last 24 Hours 12/19/18 12/19/18 Range/Units 04:40 04:40 ESR 14 (0-20) mm/hr Sodium 139 (137-145) mmol/L Potassium 3.7 (3.5-5.1) mmol/L Chloride 112 H (98-107) mmol/L Carbon Dioxide 18 L (22-30) mmol/L Anion Gap 13.4 (5-15) MEQ/L BUN 10 (7-17) mg/dL Creatinine 0.60 (0.52-1.04) mg/dL Estimated GFR > 60.0 ML/MIN Glucose 87 (74-106) mg/dL Calcium 8.7 (8.4-10.2) mg/dL Total Bilirubin 0.10 L (0.2-1.3) mg/dL AST 16 (14-36) U/L ALT 13 (0-35) U/L Alkaline Phosphatase 52 (38-126) U/L Serum Total Protein 6.4 (6.3-8.2) g/dL Albumin 3.5 (3.5-5.0) g/dL Micro Results-Entire Visit: Microbiology 12/15/18 20:30 Urine Culture - Final Clean Catch Midstream MIXED NOAH; 3 OR MORE TYPES. NO PREDOMINANT ORGANISM. NO FURTHER WORKUP. PLEASE RESUBMIT IF CLINICALLY INDICATED. Discharge Exam General Appearance: no apparent distress, alert Respiratory Exam: normal breath sounds, lungs clear, No respiratory distress Cardiovascular Exam: regular rate/rhythm, normal heart sounds Gastrointestinal/Abdomen Exam: soft, No tenderness, No mass Extremity Exam: normal inspection, normal range of motion Final Diagnosis/Problem List - Final Discharge Diagnosis/Problem (1) Enteritis Current Visit: Yes Status: Acute Code(s): K52.9 - NONINFECTIVE GASTROENTERITIS AND COLITIS, UNSPECIFIED (2) Abdominal pain Current Visit: Yes Status: Acute Code(s): R10.9 - UNSPECIFIED ABDOMINAL PAIN (3) Renal calculus, bilateral Current Visit: Yes Status: Acute Code(s): N20.0 - CALCULUS OF KIDNEY - Discharge Disposition: Home, Self-Care Condition: Good Prescriptions: New Lactobacillus Casei/Folic Acid [Restora Rx Capsule] 1 each PO DAILY #30 capsule Continue Buspirone HCl 5 mg [Buspar 5 mg] 10 mg PO TID Promethazine HCl 25 mg [Phenergan 25 mg] 25 mg PO Q6HPRN PRN PRN Reason: Nausea Varenicline Tartrate [Chantix] 1 mg PO BID No Action Naratriptan HCl [Amerge] 2.5 mg PO UD Escitalopram Oxalate 10 mg [Lexapro 10 MG] 20 mg PO HS PANTOPRAZOLE 40 mg Tablet [Protonix 40MG Tablet] 40 mg PO QAM Magnesium Oxide 400 mg [Mag-Ox 400] 400 mg PO HS Dextroamphetamine/Amphetamine [Dextroamp-Amphetamin 15 mg Tab] 15 mg PO BID Trazodone HCl 50 mg [Desyrel 50 mg] 100 mg PO HS Topiramate [Trokendi Xr] 150 mg PO HS Levothyroxine Sodium 150 Mcg [Synthroid 150 Mcg] 150 mcg PO DAILY Instructions: Irritable Bowel Syndrome, Kidney Stones (DC), Sasabe Diet, Gastritis (DC) Follow up with: LUZ ELENA AMOR MD [Primary Care Provider] - 12/27/18 11:30 am SALVATORE KATE [ACTIVE STAFF] - 12/20/18 10:00 am (AT [facility] )
[2018-12-19 16:25] VITALS: BP 106/59; PULSE 88; O2SAT 96
[2018-12-20 21:18] LABS: Calculi Composition See Result Note:
== END 2018-12-19 17:45 | disposition home or self-care (01) ==
LOC: ED 19:52 → MED SURG 12-16 00:25
PROVIDERS: ADMIT Family Medicine; ATTEND Family Medicine
DX: K52.9 Noninfective gastroenteritis and colitis, unspecified (principal); R10.9 Unspecified abdominal pain; N20.0 Calculus of kidney; E03.9 Hypothyroidism, unspecified; R53.82 Chronic fatigue, unspecified; Z79.899 Other long term (current) drug therapy
CPT/HCPCS: 36000; 36415; 74176; 80053; 81001; 81025; 81479; 82150; 82272; 82360; 82397; 83520; 83605; 83690; 84443; 84484; 85025; 85027; 85652; 86140; 87086; 87507; 88346; 93005; 96360; 96374; 96375; 96376; 99285; G0378; J1200; J1956; J2270; J2405; A9270-GY

== ENCOUNTER 2020-05-30 16:39 | Emergency (ER) | payer OTHER ==
[2020-05-30] MEDS ORDERED: Zofran 4 MG/2 ML VIAL ONE (17:09)
[2020-05-30] MEDS ORDERED: Sodium Chloride 0.9% 1000 ML 1,000 ML ONE (17:10)
[2020-05-30] MEDS ORDERED: Sodium Chloride 0.9% 1000 ML 1,000 ML IV STA (17:27)
[2020-05-30] MEDS ORDERED: TYLENOL 325 MG PO ONE (17:28)
[2020-05-30] MEDS ORDERED: Zofran 4 MG/2 ML VIAL IV ONE (17:28)
[2020-05-30] MEDS ORDERED: TYLENOL 325 MG ONE (17:36)
[2020-05-30 17:43] VITALS: O2SAT 97
[2020-05-30 18:12] LABS: Absolute Neutrophil Ct (ANC) 4.81 (1.4-6.9); BASOPHIL % 0.2 % (0.0-0.4); Basophil (Absolute #) 0.02 (0-0.4); Eosinophil % 2.1 % (0.00-5.0); Eosinophil (Absolute #) 0.18 (0-0.5); Hematocrit 40.6 % (35-47); Hemoglobin 13.2 gm/dl (12.0-16.0); Lymphocyte (Absolute #) 2.84 (1.0-4.6); Lymphocytes % 33.4 % (24.0-44.0); Mean Cell Volume 93.8 fl (78-100); Mean Corpuscular Hemoglobin 30.5 pg (26-32); Mean Corpuscular Hgb Concent. 32.5 g/dl (32-36); Mean Platelet Volume 8.9 fl (7.5-11.0); Monocyte (Absolute #) 0.66 (0.0-1.3); Monocytes % 7.8 % (0.0-12.0); Neutrophil % 56.5 % (36.0-66.0); Platelet Count 327 K/mm3 (150-450); Red Blood Count 4.33 M/mm3 (4.1-5.4); Red Cell Distribution Width 13.3 % (11.5-14.0); White Blood Count 8.5 K/mm3 (4.0-10.5)
[2020-05-30 18:16] LABS: Appearance SLIGHTLY CLOUDY (CLEAR); Bilirubin NEGATIVE (NEGATIVE); Blood NEGATIVE Ery/ul (0-5); Epithelial Cells RARE /HPF (FEW); Glucose NEGATIVE (NEGATIVE); Ketones NEGATIVE (NEGATIVE); Leukocyte Esterase MODERATE (NEGATIVE); Mucus SLIGHT /HPF (NEGATIVE); Nitrite NEGATIVE (NEGATIVE); Protein,Urine Dip NEGATIVE (Negative); Specific Gravity 1.023 (1.005-1.025); Urobilinogen NEGATIVE mg/dL (0-1); WBC 0-2 /HPF (0-5)
[2020-05-30 18:19] LABS: Bacteria RARE /HPF (NEGATIVE)
[2020-05-30 18:26] LABS: ALBUMIN 4.2 g/dL (3.5-5.0); ALKALINE PHOSPHATASE 56 U/L (38-126); ANION GAP 10.2 MEQ/L (5-15); BLOOD UREA NITROGEN 9 mg/dL (7-17); CHLORIDE 107 mmol/L (98-107); Calcium 8.4 mg/dL (8.4-10.2); Carbon Dioxide 24 mmol/L (22-30); Creatinine 1 0.64 mg/dL (0.52-1.04); EST GLOMERULAR FILTRATION RATE > 60.0 ML/MIN; Glucose 88 mg/dL (74-106); MAGNESIUM 2.1 mg/dL (1.6-2.3); Potassium 3.4 mmol/L (3.5-5.1); SGOT/AST 18 U/L (14-36); SGPT/ALT 10 U/L (0-35); SODIUM 138 mmol/L (137-145); Total Protein 7.2 g/dL (6.3-8.2)
[2020-05-30 18:54] LABS: INFLUENZA A NEGATIVE (NEGATIVE); INFLUENZA B NEGATIVE (NEGATIVE); RESPIRATORY SYNCTIAL VIRUS NEGATIVE (Negative)
--- NOTE | 2020-05-30 20:01 | ERPHSYRPT ---
- History of Present Illness Time Seen by Provider: 05/30/20 16:59 Source: patient Exam Limitations: no limitations Patient Subjective Stated Complaint: Dizziness Triage Nursing Assessment: Patient brought back to ED via w/c and transferred self to bed. Patient A+O X 3. Patient's skin pink, warm and dry. Patient complains of Dizziness, headache, sore throat, vomiting, SOB on exertion. Patient states her symptoms started on Monday. Lungs clear a/p rivka. Physician History: 34 years old female presented in the ER with chief complaint of generalized body aches, sore throat, congestion, wet to dry cough, mild shortness of breath, nausea and occasional abdominal pain with some dizziness and lightheadedness. Patient report this is been going on for the last 5 days with gradual worsening. Denies any sick contact. No fever but chills. Generalized weakness and fatigue. Feels exhausted/drained with no energy to do her routine activities. Timing/Duration: day(s) (5), gradual onset, worse Cough Quality/Degree: mild, dry cough Possible Cause: no prior episodes Modifying Factors: Improves With: activity, exertion Associated Symptoms: chills, cough, dizziness, headache, muscle aches, nasal congestion, shortness of breath, sore throat Allergies/Adverse Reactions: cefaclor [From Ceclor] Allergy (Verified 05/30/20 16:50) Estrogens Adverse Reaction (Mild, Verified 05/30/20 16:50) Headache Home Medications: Buspirone HCl 5 mg [Buspar 5 mg] 10 mg PO TID 12/15/18 [History] Dextroamphetamine/Amphetamine [Dextroamp-Amphetamin 15 mg Tab] 15 mg PO BID 12/15/18 [History] Escitalopram Oxalate 10 mg [Lexapro 10 MG] 20 mg PO HS 12/15/18 [History] Magnesium Oxide 400 mg [Mag-Ox 400] 400 mg PO HS 12/15/18 [History] Naratriptan HCl [Amerge] 2.5 mg PO UD 12/15/18 [History] PANTOPRAZOLE 40 mg Tablet [Protonix 40MG Tablet] 40 mg PO QAM 12/15/18 [History] Promethazine HCl 25 mg [Phenergan 25 mg] 25 mg PO Q6HPRN PRN 12/15/18 [History] Topiramate [Trokendi Xr] 150 mg PO HS 12/15/18 [History] Trazodone HCl 50 mg [Desyrel 50 mg] 100 mg PO HS 12/15/18 [History] Varenicline Tartrate [Chantix] 1 mg PO BID 12/15/18 [History] Levothyroxine Sodium 150 Mcg [Synthroid 150 Mcg] 150 mcg PO DAILY 12/16/18 [History] Hx Tetanus, Diphtheria Vaccination/Date Given: No Hx Influenza Vaccination/Date Given: Yes Hx Pneumococcal Vaccination/Date Given: Yes Immunizations Up to Date: Yes Travel Risk - International Travel Have you traveled outside of the country in past 3 weeks: No - Coronavirus Screening Are you exhibiting any of the following symptoms?: Yes Symptoms: Shortness of Breath, Vomiting/Diarrhea, Loss of Taste or Smell, Headaches/Body Aches/Fatigue Close contact with a COVID-19 positive Pt in past 14-21 Days: No - Review of Systems Constitutional: Chills, Fatigue, Malaise, Weakness Eyes: No Symptoms Ears, Nose, & Throat: Nose Congestion, Throat Pain Respiratory: Cough, Dyspnea Cardiac: No Symptoms Abdominal/Gastrointestinal: Abdominal Pain, Nausea Genitourinary Symptoms: No Symptoms Musculoskeletal: Myalgias Skin: No Symptoms Neurological: Dizziness, Headache Psychological: No Symptoms Endocrine: No Symptoms Hematologic/Lymphatic: No Symptoms Immunological/Allergic: No Symptoms - Past Medical History Pertinent Past Medical History: Yes Neurological History: Migraines ENT History: No Pertinent History Cardiac History: No Pertinent History Respiratory History: No Pertinent History Endocrine Medical History: No Pertinent History Musculoskeletal History: No Pertinent History GI Medical History: Colitis History: No Pertinent History Psycho-Social History: Other Female Reproductive Disorders: Abnormal Uterine Bleeding, Fibroids, Menstrual Problems Other Medical History: migraine headaches- complex ( hx stroke like symptoms). chronic fatigue syndrome - Past Surgical History Past Surgical History: Yes Neuro Surgical History: No Pertinent History Cardiac: No Pertinent History Respiratory: No Pertinent History Gastrointestinal: Cholecystectomy Genitourinary: No Pertinent History Musculoskeletal: Orthopedic Surgery Female Surgical History: Section Other Surgical History: TONSILS AND ADENOIDS - "CRYO SURGERY" uterine ablation- CARPEL TUNNEL REPAIR- right. cysts removed off of ovaries. cysts removed left ear. tissue and skin graph to left ear from neck - Social History Smoking Status: Current every day smoker How long have you smoked: 20 yrs Exposure to second hand smoke: Yes (outside) Drug Use: none Patient Lives Alone: No - Female History Hx Last Menstrual Period: ablatopm Hx Now: No (unkn) - Nursing Vital Signs Nursing Vital Signs: Initial Vital Signs Temperature 99.2 F 05/30/20 16:51 Pain Scale Pain Intensity 0 - Physical Exam General Appearance: no apparent distress, alert Eye Exam: PERRL/EOMI, eyes nml inspection Ears, Nose, Throat Exam: normal ENT inspection, TMs normal, pharyngeal erythema Neck Exam: normal inspection, non-tender, supple, full range of motion Respiratory Exam: normal breath sounds, lungs clear, No chest tenderness Cardiovascular Exam: regular rate/rhythm, normal heart sounds Gastrointestinal/Abdomen Exam: soft, normal bowel sounds, No tenderness Extremity Exam: normal inspection, normal range of motion Neurologic Exam: alert, oriented x 3, cooperative Skin Exam: normal color, warm, dry SpO2 Interpretation: normal SpO2: 97 O2 Delivery: Room Air Ordered Tests: Active Orders 24 hr Category Date Time Status IV Insertion STAT Care 05/30/20 17:27 Active CHEST 1 VIEW (PORTABLE) Stat Exams 05/30/20 17:27 Taken BLOOD CULTURE Stat Lab 05/30/20 18:00 Received CBC W DIFF Stat Lab 05/30/20 18:00 Completed CMP Stat Lab 05/30/20 18:00 Completed HCG,QUALITATIVE URINE Stat Lab 05/30/20 18:00 Completed Lactic Acid Stat Lab 05/30/20 18:10 Completed MAGNESIUM Stat Lab 05/30/20 18:00 Completed UA W/RFX UR CULTURE Stat Lab 05/30/20 18:00 Completed Medication Summary Discontinued Medications Generic Name Dose Route Start Last Admin Trade Name Mauricioq PRN Reason Stop Dose Admin Acetaminophen 975 mg 05/30/20 17:28 05/30/20 17:40 Tylenol 325 Mg PO 05/30/20 17:29 975 mg STAT ONE Administration Acetaminophen Confirm 05/30/20 17:36 Tylenol 325 Mg Administered 05/30/20 17:37 Dose 975 mg .ROUTE .STK-MED ONE Sodium Chloride Confirm 05/30/20 17:10 Sodium Chloride 0.9% 1000 Ml Administered 05/30/20 17:11 Dose 1,000 mls @ ud .ROUTE .STK-MED ONE Sodium Chloride 1,000 mls @ 999 mls/hr 05/30/20 17:27 05/30/20 18:36 Sodium Chloride 0.9% 1000 Ml IV 05/30/20 18:27 Infused .Q1H1M STA Infusion Ondansetron HCl Confirm 05/30/20 17:09 Zofran 4 Mg/2 Ml Vial Administered 05/30/20 17:10 Dose 4 mg .ROUTE .STK-MED ONE Ondansetron HCl 4 mg 05/30/20 17:28 05/30/20 17:35 Zofran 4 Mg/2 Ml Vial IV 05/30/20 17:29 4 mg STAT ONE Administration Lab/Rad Data: Laboratory Result Diagrams 05/30/20 18:00 05/30/20 18:00 Laboratory Results 05/30/20 05/30/20 05/30/20 Range/Units 18:10 18:08 18:00 WBC (4.0-10.5) K/mm3 RBC (4.1-5.4) M/mm3 Hgb (12.0-16.0) gm/dl Hct (35-47) % MCV (78-100) fl MCH (26-32) pg MCHC (32-36) g/dl RDW (11.5-14.0) % Plt Count (150-450) K/mm3 MPV (7.5-11.0) fl Gran % (36.0-66.0) % Eos # (Auto) (0-0.5) Absolute Lymphs (auto) (1.0-4.6) Absolute Monos (auto) (0.0-1.3) Lymphocytes % (24.0-44.0) % Monocytes % (0.0-12.0) % Eosinophils % (0.00-5.0) % Basophils % (0.0-0.4) % Absolute Granulocytes (1.4-6.9) Basophils # (0-0.4) Sodium (137-145) mmol/L Potassium (3.5-5.1) mmol/L Chloride (98-107) mmol/L Carbon Dioxide (22-30) mmol/L Anion Gap (5-15) MEQ/L BUN (7-17) mg/dL Creatinine (0.52-1.04) mg/dL Estimated GFR ML/MIN Glucose (74-106) mg/dL Lactic Acid 2.2 H (0.4-2.0) Calcium (8.4-10.2) mg/dL Magnesium (1.6-2.3) mg/dL Total Bilirubin (0.2-1.3) mg/dL AST (14-36) U/L ALT (0-35) U/L Alkaline Phosphatase (38-126) U/L Serum Total Protein (6.3-8.2) g/dL Albumin (3.5-5.0) g/dL Urine Color (YELLOW) Urine Appearance (CLEAR) Urine pH (5-6) Ur Specific [place] (1.005-1.025) Urine Protein (Negative) Urine Ketones (NEGATIVE) Urine Blood (0-5) Jamie/ul Urine Nitrite (NEGATIVE) Urine Bilirubin (NEGATIVE) Urine Urobilinogen (0-1) mg/dL Ur Leukocyte Esterase (NEGATIVE) Urine WBC (Auto) (0-5) /HPF Urine RBC (Auto) (0-2) /HPF U Epithel Cells (Auto) (FEW) /HPF Urine Bacteria (Auto) (NEGATIVE) /HPF Urine Mucus (Auto) (NEGATIVE) /HPF Urine Culture Reflexed (NO) Urine Glucose (NEGATIVE) mg/dL Urine HCG, Qual NEGATIVE (Negative) Influenza Type A Ag NEGATIVE (NEGATIVE) Influenza Type B Ag NEGATIVE (NEGATIVE) RSV (PCR) NEGATIVE (Negative) 05/30/20 05/30/20 05/30/20 Range/Units 18:00 18:00 18:00 WBC 8.5 (4.0-10.5) K/mm3 RBC 4.33 (4.1-5.4) M/mm3 Hgb 13.2 (12.0-16.0) gm/dl Hct 40.6 (35-47) % MCV 93.8 (78-100) fl MCH 30.5 (26-32) pg MCHC 32.5 (32-36) g/dl RDW 13.3 (11.5-14.0) % Plt Count 327 (150-450) K/mm3 MPV 8.9 (7.5-11.0) fl Gran % 56.5 (36.0-66.0) % Eos # (Auto) 0.18 (0-0.5) Absolute Lymphs (auto) 2.84 (1.0-4.6) Absolute Monos (auto) 0.66 (0.0-1.3) Lymphocytes % 33.4 (24.0-44.0) % Monocytes % 7.8 (0.0-12.0) % Eosinophils % 2.1 (0.00-5.0) % Basophils % 0.2 (0.0-0.4) % Absolute Granulocytes 4.81 (1.4-6.9) Basophils # 0.02 (0-0.4) Sodium 138 (137-145) mmol/L Potassium 3.4 L (3.5-5.1) mmol/L Chloride 107 (98-107) mmol/L Carbon Dioxide 24 (22-30) mmol/L Anion Gap 10.2 (5-15) MEQ/L BUN 9 (7-17) mg/dL Creatinine 0.64 (0.52-1.04) mg/dL Estimated GFR > 60.0 ML/MIN Glucose 88 (74-106) mg/dL Lactic Acid (0.4-2.0) Calcium 8.4 (8.4-10.2) mg/dL Magnesium 2.1 (1.6-2.3) mg/dL Total Bilirubin 0.20 (0.2-1.3) mg/dL AST 18 (14-36) U/L ALT 10 (0-35) U/L Alkaline Phosphatase 56 (38-126) U/L Serum Total Protein 7.2 (6.3-8.2) g/dL Albumin 4.2 (3.5-5.0) g/dL Urine Color YELLOW (YELLOW) Urine Appearance SLIGHTLY CLOUDY (CLEAR) Urine pH 6.0 (5-6) Ur Specific [place] 1.023 (1.005-1.025) Urine Protein NEGATIVE (Negative) Urine Ketones NEGATIVE (NEGATIVE) Urine Blood NEGATIVE (0-5) Jamie/ul Urine Nitrite NEGATIVE (NEGATIVE) Urine Bilirubin NEGATIVE (NEGATIVE) Urine Urobilinogen NEGATIVE (0-1) mg/dL Ur Leukocyte Esterase MODERATE (NEGATIVE) Urine WBC (Auto) 0-2 (0-5) /HPF Urine RBC (Auto) NONE (0-2) /HPF U Epithel Cells (Auto) RARE (FEW) /HPF Urine Bacteria (Auto) RARE (NEGATIVE) /HPF Urine Mucus (Auto) SLIGHT (NEGATIVE) /HPF Urine Culture Reflexed NO (NO) Urine Glucose NEGATIVE (NEGATIVE) mg/dL Urine HCG, Qual (Negative) Influenza Type A Ag (NEGATIVE) Influenza Type B Ag (NEGATIVE) RSV (PCR) (Negative) - Progress Progress: improved, re-examined Air Movement: good Progress Note: 05/30/20 20:13 34 years old is evaluated for flulike symptoms for the last 5 days. She is given fluid bolus along with Zofran and Tylenol, on reevaluation feeling somewhat better. Broad work-up was done which is grossly negative for any acute findings. COVID-19 testing is obtained and pending at present. Patient is not in any distress. Maintaining oxygen saturation at room air around 97%. No tachypneic or tachycardic. I believe patient has viral etiologies symptoms, recommended supportive care and outpatient follow-up. Discussed signs symptoms of worsening needing return to ER which she seems understanding. Stable for discharge. Blood Culture(s) Obtained: Yes Antibiotics given: No Counseled pt/family regarding: lab results, diagnosis, need for follow-up, rad results, smoking cessation - Departure Departure Disposition: Home Clinical Impression: Viral syndrome Condition: Stable Critical Care Time: No Referrals: LUZ ELENA AMOR MD [Primary Care Provider] - Follow Up with PCP/3 days Instructions: Viral Syndrome (DC) Additional Instructions: Drink plenty of fluids. Take Tylenol as needed. Take Zofran as needed for nausea and vomiting. Follow-up with your primary care physician for reevaluation. Follow contact/droplet precautions until your COVID-19 testing is back. Prescriptions: Ondansetron ODT 4 MG [Zofran Odt 4 mg] 4 mg PO Q6H PRN PRN #10 tab.rapdis PRN Reason: Vomiting
[2020-05-30 20:24] VITALS: BP 110/58; PULSE 64
--- NOTE | 2020-05-30 21:13 | XRAY ---
Indication: Pneumonia. Suspect Covid 19. Comparison: July 25, 2018. Portable chest again demonstrates normal heart, lungs, and bony thorax with incidental left midlung calcified granuloma.
== END 2020-05-30 20:18 | disposition home or self-care (01) ==
LOC: ED 16:39
DX: B34.9 Viral infection, unspecified (principal)
CPT/HCPCS: 36000; 36415; 71045; 80053; 81001; 83605; 83735; 84703; 85025; 87040; 87631; 96360; 96374; 99284; U0003; J2405; A9270-GY

== ENCOUNTER 2020-11-01 19:45 | Emergency (ER) | payer OTHER ==
--- NOTE | 2020-11-01 21:08 | ERPHSYRPT ---
- History of Present Illness Time Seen by Provider: 11/01/20 20:15 Source: patient Exam Limitations: no limitations Patient Subjective Stated Complaint: pt states that she had a cyst come up on her ear monday Triage Nursing Assessment: pt ambulated into the er; pt is axo x4; c/o abcess to left ear; pt states 8/10 pain to left ear; pt states pain is a pressure; pt states she has hx of abcess to left ear; pt states that she went to [facility] yesterday; pt states that the er md drained ear; pt states that she has started to take clindamycin; abscess 1.7 cm x 1.5 cm; no drainage present; abscess is red and warm to the touch; pt states that she has had chills all day and declines fever; pt is hypertensive Physician History: Patient is a 35-year-old female who has had on the penis of the external ear on the left a small nodule for some time approximately a year ago it did get infected and was drained it recurred but did not get infected until a few days ago when it became red and swollen. She went to [facility] and they aspirated it with a 30-gauge needle today it is bigger and more painful. Timing/Duration: day(s) (3) Quality: painful Severity: moderate Location: other (Left ear) Possible Causes: no cause identified Allergies/Adverse Reactions: cefaclor [From [facility]] Allergy (Verified 11/01/20 19:57) Estrogens Adverse Reaction (Mild, Verified 11/01/20 19:57) Headache Home Medications: Buspirone HCl 5 mg [Buspar 5 mg] 20 mg PO TID 12/15/18 [History] Dextroamphetamine/Amphetamine [Dextroamp-Amphetamin 15 mg Tab] 15 mg PO BID 12/15/18 [History] Magnesium Oxide 400 mg [Mag-Ox 400] 400 mg PO HS 12/15/18 [History] PANTOPRAZOLE 40 mg Tablet [Protonix 40MG Tablet] 40 mg PO QAM 12/15/18 [History] Trazodone HCl 50 mg [Desyrel 50 mg] 100 mg PO HS 12/15/18 [History] Levothyroxine Sodium 150 Mcg [Synthroid 150 Mcg] 120 mcg PO DAILY 12/16/18 [History] Clindamycin HCl 300 mg PO Q6H 11/01/20 [History] PARoxetine HCl [Paxil] 20 mg PO 11/01/20 [History] Hx Tetanus, Diphtheria Vaccination/Date Given: Yes Hx Influenza Vaccination/Date Given: Yes Hx Pneumococcal Vaccination/Date Given: No Travel Risk - International Travel Have you traveled outside of the country in past 3 weeks: No - Coronavirus Screening Are you exhibiting any of the following symptoms?: No Close contact with a COVID-19 positive Pt in past 14-21 Days: No - Review of Systems Constitutional: No Fever, No Chills Eyes: No Symptoms Ears, Nose, & Throat: No Symptoms Respiratory: No Cough, No Dyspnea Cardiac: No Chest Pain, No Edema, No Syncope Abdominal/Gastrointestinal: No Abdominal Pain, No Nausea, No Vomiting, No Diarrhea Genitourinary Symptoms: No Dysuria Musculoskeletal: No Back Pain, No Neck Pain Skin: Other (Abscess), No Rash Neurological: No Dizziness, No Focal Weakness, No Sensory Changes Psychological: No Symptoms Endocrine: No Symptoms All Other Systems: Reviewed and Negative - Past Medical History Pertinent Past Medical History: Yes Neurological History: Migraines ENT History: No Pertinent History Cardiac History: No Pertinent History Respiratory History: No Pertinent History Endocrine Medical History: No Pertinent History Musculoskeletal History: No Pertinent History GI Medical History: Colitis, GERD History: No Pertinent History Psycho-Social History: Anxiety, Depression, Other Female Reproductive Disorders: Abnormal Uterine Bleeding, Fibroids, Menstrual Problems Other Medical History: migraine headaches- complex ( hx stroke like symptoms). chronic fatigue syndrome - Past Surgical History Past Surgical History: Yes Neuro Surgical History: No Pertinent History Cardiac: No Pertinent History Respiratory: No Pertinent History Gastrointestinal: Cholecystectomy Genitourinary: No Pertinent History Musculoskeletal: Orthopedic Surgery Female Surgical History: Section, Tubal Ligation Other Surgical History: TONSILS AND ADENOIDS - "CRYO SURGERY" uterine ablation- CARPEL TUNNEL REPAIR- right. cysts removed off of ovaries. cysts removed left ear. tissue and skin graph to left ear from neck. c- section x3 - Social History Smoking Status: Current every day smoker How long have you smoked: 20 yrs Exposure to second hand smoke: Yes (outside) Drug Use: none Patient Lives Alone: No - Female History Hx Now: No (unsure) - Nursing Vital Signs Nursing Vital Signs: Initial Vital Signs Temperature 98.8 F 11/01/20 20:03 Pulse Rate 85 11/01/20 20:03 Respiratory Rate 16 11/01/20 20:03 Blood Pressure 151/91 11/01/20 20:03 O2 Sat by Pulse Oximetry 98 11/01/20 20:03 Pain Scale Pain Intensity 8 - Physical Exam General Appearance: no apparent distress, mild distress, alert Eye Exam: PERRL/EOMI, eyes nml inspection Ears, Nose, Throat Exam: normal ENT inspection, pharynx normal, moist mucous membranes Neck Exam: normal inspection, non-tender, supple, full range of motion Respiratory Exam: normal breath sounds, lungs clear, No respiratory distress Cardiovascular Exam: regular rate/rhythm, normal heart sounds Gastrointestinal/Abdomen Exam: soft, mass, No tenderness Back Exam: normal inspection, normal range of motion, No CVA tenderness, No vertebral tenderness Extremity Exam: normal inspection, normal range of motion Neurologic Exam: alert, oriented x 3, cooperative, normal mood/affect, sensation nml, No motor deficits Skin Exam: normal color, warm, dry, other (There is a obvious abscess the left pinna of the external ear this was incised.) SpO2 Interpretation: normal SpO2: 98 O2 Delivery: Room Air Procedures - Incision and Drainage Time of Procedure: 20:30 Site: Left external ear Anesthesia: 1% lidocaine w/epi cc's of anesthesia: 2 Blade Size: 11 I & D Procedure: hibiclens prep, sterile drapes applied, culture obtained Results: moderate amount pus - Course Nursing assessment & vital signs reviewed: Yes - Progress Progress: improved Progress Note: 11/01/20 21:08 Patient was instructed to continue antibiotics started last night at [facility] which consist of Cleocin. - Departure Departure Disposition: Home Clinical Impression: Abscess of external ear, left Condition: Stable Critical Care Time: No Referrals: LUZ ELENA AMOR MD [Primary Care Provider] -
[2020-11-01 21:14] VITALS: BP 130/84; PULSE 84; O2SAT 97
[2020-11-01] MEDS ORDERED: XYLOCAINE 1% HCL 20 ML MDV IJ ONE (21:24)
[2020-11-01] MEDS ORDERED: XYLOCAINE 2% HCL 20 ML MDV IJ ONE (21:27)
== END 2020-11-01 21:23 | disposition home or self-care (01) ==
LOC: ED 19:45
DX: H60.02 Abscess of left external ear (principal)
CPT/HCPCS: 87070; 99283

== ENCOUNTER 2021-04-21 06:07 | Day surgery (SDC) | payer OTHER ==
[2021-04-21] MEDS: Lactated Ringers 1,000 ML IV SCH (06:35)
[2021-04-21 09:24] VITALS: BP 116/78; PULSE 72; O2SAT 100
--- NOTE | 2021-04-21 11:36 | OP ---
SURGERY DATE/TIME: 04/21/2021 0827 PREOPERATIVE DIAGNOSES: 1) Epigastric abdominal pain. 2) Melena. POSTOPERATIVE DIAGNOSIS: Mild gastritis. PROCEDURE: EGD. SURGEON: Cody Benton M.D. ANESTHESIA: MAC by Lucian Mckenzie CRNA. ESTIMATED BLOOD LOSS: Minimal. SPECIMENS: Two cold forceps biopsies from the gastric antrum were taken and sent for Helicobacter pylori testing. DESCRIPTION OF PROCEDURE: After informed written consent was obtained, the patient was taken to the endoscopy suite. She was placed in the left lateral decubitus position and a bite block was inserted. Anesthesia was titrated to the desired level of consciousness. The endoscope was inserted into the posterior oropharynx and under direct visualization the esophagus was traversed. The esophageal mucosa had a normal mucosal appearance free of any lesions or defects. The gastroesophageal junction and gastric mucosa likewise had a normal appearance upon entering the stomach. The gastric mucosa was rugated with no obvious ulcerations or bleeding. There were gastritis changes that were mild in the gastric antrum. The pylorus was traversed and the first and second portion of the duodenum were within normal limits. Two cold forceps biopsies were taken from the gastric antrum and sent for Helicobacter pylori testing with minimal blood loss. No other abnormalities were appreciable. The scope was removed. The patient was transferred to the recovery room in good condition. I have advised that she follow up in a week for pathology results.
== END 2021-04-21 09:30 | disposition home or self-care (01) ==
LOC: SDC 06:07
PROVIDERS: ATTEND Family Medicine
DX: K29.70 Gastritis, unspecified, without bleeding (principal); R10.13 Epigastric pain; K92.1 Melena
CPT/HCPCS: 84703; 88305

== ENCOUNTER 2024-04-01 07:35 | Day surgery (SDC) | payer OTHER ==
[2024-04-01] MEDS ORDERED: Lactated Ringers 1,000 ML IV ONE (07:42)
[2024-04-01] MEDS: Lactated Ringers 1,000 ML IV SCH (07:51)
[2024-04-01] MEDS ORDERED: TYLENOL EXTRA STRENGTH 500 MG ONE (07:54)
[2024-04-01] MEDS ORDERED: NEURONTIN ONE (07:54)
[2024-04-01] MEDS ORDERED: celeBREX 100 MG ONE (07:54)
[2024-04-01] MEDS ORDERED: Decadron 4 MG ONE (07:54)
[2024-04-01] MEDS ORDERED: CLINDAMYCIN-D5W 900 MG/50 ML*** 900 MG/50 ML BAG IV ONE (07:54)
[2024-04-01] MEDS: NEURONTIN PO ONE (07:55)
[2024-04-01] MEDS: CLINDAMYCIN-D5W 900 MG/50 ML*** 900 MG/50 ML BAG IV SCH (07:55)
[2024-04-01] MEDS: TYLENOL EXTRA STRENGTH 500 MG PO ONE (07:55)
[2024-04-01] MEDS: celeBREX 100 MG PO ONE (07:55)
[2024-04-01] MEDS: Decadron 4 MG PO ONE (07:55)
[2024-04-01 07:56] LABS: HCG URINE TEST NEGATIVE (NEGATIVE)
--- NOTE | 2024-04-01 08:05 | HP ---
HISTORY OF PRESENT ILLNESS: The patient has had pain and drainage pilonidal area and drained, pain a little better. The patient also has preauricular cyst area as well. PAST MEDICAL HISTORY: Hypothyroidism, anxiety, and depression. PAST SURGICAL HISTORY: Tonsillectomy and adenoidectomy, cholecystectomy, , the patient had carpal tunnel release and had cyst on the face and ear with skin graft in the past, uterine thermal ablation, ovarian cyst and tubal in the past. FAMILY HISTORY: Heart disease. SOCIAL HISTORY: 1 pack/day smoker. No alcohol abuse. MEDICATIONS: Vitamin B2, Flonase, Zyrtec, trazodone, potassium chloride, sertraline, buspirone, levothyroxine, Adderall. ALLERGIES: Ceclor. REVIEW OF SYSTEMS: Twelve systems reviewed. Pertinent for all medical problems as noted above. No chest pain or palpitations currently. PHYSICAL EXAMINATION: VITAL SIGNS: Height 5 feet 6 inches. BMI 33.25. GENERAL: No acute distress. HEENT: Sclerae nonicteric. Extraocular movements intact. NECK: No JVD. CHEST: Equal excursion, nonlabored breathing. CARDIOVASCULAR: Regular rate and rhythm. ABDOMEN: Soft. EXTREMITIES: No cyanosis or edema. NEUROLOGIC: Alert and oriented, moving all extremities symmetrically. PSYCHIATRIC: Appropriate mood and affect. SKIN: Preauricular cyst or nodule. In her pilonidal area, she has induration but this is a pilonidal cyst. IMPRESSION: Ruptured pilonidal cyst disease. Recommend excision, possible packing or flap closure pending operative findings. Risks explained in detail including but not limited to bleeding or infection; risk of aches and pains; risk of infection; risk of nonhealing; risk of delayed healing or wound dehiscence possibly requiring packing, even a delayed period with initial closure dehisce as well as majority healed, 90% healing 8 to 12 weeks, 5% take longer to heal, 5% failure to heal and may require other intervention or referral; risk of anesthesia, DVT, PE, pneumonia; risk of aches and pains, bleeding but not limited to. Otherwise, continue medications for anxiety and hypothyroidism. The patient at a later date consider excision of preauricular cyst or nodule. Otherwise, will proceed excisional biopsy of pilonidal cyst, possible packing, possible flap closure. Clindamycin in the OR. At a later date, excisional biopsy of the preauricular cyst or nodule. Risks of that include not limited to bleeding or infection; risk of nerve irritation or scar formation; risk of dry eye or chewing dysfunction but not limited to. We will proceed with excisional biopsy of pilonidal cyst, possible packing, possible flap closure as an outpatient.
[2024-04-01 08:15] VITALS: RESP 16
[2024-04-01] MEDS ORDERED: Xylocaine-Mpf 2% 5 Ml Vial ONE (10:19)
[2024-04-01] MEDS ORDERED: Zofran 4 MG/2 ML VIAL ONE ×2 (10:19→11:33)
[2024-04-01] MEDS ORDERED: DIPRIVAN 200 MG/20 ML IV ONE (10:19)
[2024-04-01] MEDS ORDERED: SUBLIMAZE 100 MCG/2 ML ONE ×2 (10:19→11:38)
[2024-04-01] MEDS ORDERED: Decadron 4 MG INJ ONE (10:19)
[2024-04-01] MEDS ORDERED: TORAdol 30 mg Injection ONE (10:19)
[2024-04-01] MEDS ORDERED: BRIDION 200MG/2ML IV ONE (10:19)
[2024-04-01] MEDS ORDERED: ROCURONIUM BROMIDE IV ONE (10:19)
[2024-04-01] MEDS ORDERED: Sensorcaine 0.25% 10 ML ONE (10:22)
[2024-04-01] MEDS ORDERED: Hydromorphone 1 mg/ml Injection ONE (11:55)
[2024-04-01] MEDS ORDERED: Compazine 10 MG/2 ML ONE (12:10)
[2024-04-01 12:58] VITALS: TEMP 96.9
[2024-04-01 13:51] VITALS: BP 98/65; PULSE 70; O2SAT 95
--- NOTE | 2024-04-02 09:36 | OP ---
SURGERY DATE/TIME: 04/01/2024 3974 [id number] PREOPERATIVE DIAGNOSIS: History of infected ruptured pilonidal cyst site in need of excision. POSTOPERATIVE DIAGNOSIS: History of infected ruptured pilonidal cyst site in need of excision. PROCEDURE: Excision and biopsy of ruptured infected pilonidal cyst site (approximately 5 x 3 x 2 to 2.5 cm deep). SURGEON: Ed Sanchez MD ANESTHESIA: General. ESTIMATED BLOOD LOSS: Minimal. INDICATIONS: As noted above, consent obtained. DESCRIPTION OF PROCEDURE AND FINDINGS: The patient was taken to the operating room. General anesthesia was introduced. Prepped and draped in usual sterile fashion. After official time-out, no disagreement in planned procedure. Marking out around the several pits in her pilonidal area, dissection was carried down. I originally was hoping there would be limited inflammation or infection to possibly develop flap closure; however, on dissecting down, there was a large abscess off to the patient's right that required extending the wound out that direction given the degree. I was able to get underneath the granulation cavity, passed the specimen off. It measured 5 cm long x 3 cm wide x 2 to 2.5 cm deep. Given the degree of infection, it was felt this would most certainly dehisce trying to close with any flaps. It was felt safest to go ahead and leave it open and pack it. This had been explained as a possibility to the patient in the office and understanding that most of these heal; 90% heal in 8 to 12 weeks, 5% take longer, 5% fail to heal and might require other treatments, procedures or referrals. She had been explained this preoperatively prior to scheduling the procedure. The patient's wound, good hemostasis was noted. Marcaine 0.25% locally injected along and around the area. It was packed with some saline-soaked Kerlix to be removed tomorrow and repacked with normal saline wet-to-dry to the base of the wound on a daily basis, daily and as needed. Findings discussed with the family in the waiting area. The family was not out there originally, but later the family was gathered in the room and I spoke with the family, updated them on the findings. Continue local wound care. We will see her back in the office next week. They were discussed the options, and she so deemed that she felt she needed some sort of VAC system, she could be referred to the hospital's wound therapy department, but at this time, continue local wound care. She was transferred to the recovery room in stable condition.
== END 2024-04-01 13:40 | disposition home or self-care (01) ==
LOC: SDC 07:35
PROVIDERS: ATTEND Surgery
DX: L05.01 Pilonidal cyst with abscess (principal)
CPT/HCPCS: 81025; 93005; J1100; J1170; J1885; J2405; J2704; J3010; A9270-GY

== ENCOUNTER 2024-07-05 11:17 | Emergency (ER) | payer OTHER ==
[2024-07-05 11:30] VITALS: TEMP 98.3
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
[2024-07-05] MEDS ORDERED: Adacel Vial IM ONE (12:08)
[2024-07-05] MEDS: Adacel Vial IM ONE (12:10)
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
[2024-07-05 12:20] LABS: Absolute Neutrophil Ct (ANC) 8.47 x10^3/uL (1.56-6.13); BASOPHIL % 0.4 % (0.1-1.2); Basophil (Absolute #) 0.04 x10^3/uL (0.01-0.08); Eosinophil % 0.6 % (0.7-5.8); Eosinophil (Absolute #) 0.06 x10^3/uL (0.04-0.36); Hematocrit 38.5 % (34.1-44.9); Hemoglobin 12.8 g/dL (11.2-15.7); IMMATURE GRAN # 0.04 x10^3u/L (0.001-0.031); IMMATURE GRAN % 0.4 % (0.001-0.429); Lymphocytes % 12.7 % (19.3-51.7); Mean Cell Volume 90.2 fL (79.4-94.8); Mean Corpuscular Hgb Concent. 33.2 g/dL (32.2-35.5); Mean Platelet Volume 8.4 fL (9.4-12.3); Monocyte (Absolute #) 0.29 x10^3/uL (0.24-0.86); Monocytes % 2.8 % (4.7-12.5); Neutrophil % 83.1 % (34.0-71.1); Platelet Count 409 x10^3/uL (182-369); Red Blood Count 4.27 x10^6/uL (3.93-5.22); Red Cell Distribution Width 14.2 % (11.7-14.4); White Blood Count 10.2 x10^3/uL (3.98-10.04)
[2024-07-05 12:31] LABS: HCG SERUM TEST NEGATIVE (NEGATIVE)
[2024-07-05 12:34] LABS: ALBUMIN 4.8 g/dL (3.5-5.0); BILIRUBIN,TOTAL 0.3 mg/dL (0.2-1.3); Calcium 9.6 mg/dL (8.4-10.2); Creatinine 1 0.63 mg/dL (0.52-1.04); EST GLOMERULAR FILTRATION RATE 114.9 ML/MIN; Potassium 4.1 mmol/L (3.5-5.1)
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
[2024-07-05 13:34] LABS: Appearance Clear (Clear); Bacteria None Seen /HPF (None Seen); Bilirubin Negative (Negative); Blood Negative (Negative); Epithelial Cells None Seen /HPF (None Seen); Glucose, Urine Negative (Negative); Hyaline Casts NONE SEEN /LPF (0-2); Ketones Negative (Negative); Leukocyte Esterase Negative (Negative); Nitrite Negative (Negative); Ph 6.5 (4.6-8.0); Protein,Urine Dip Negative (Negative); RBC 0-2 /HPF (0-5); Specific Gravity <=1.005 (1.005-1.030); Urobilinogen 0.2 mg/dL (0.2); WBC 0-2 /HPF (0-5)
[2024-07-05] MEDS ORDERED: TYLENOL EXTRA STRENGTH 500 MG ONE (14:29)
[2024-07-05] MEDS: TYLENOL EXTRA STRENGTH 500 MG PO STA (14:30)
--- NOTE | 2024-07-05 15:28 | PCM.CONS ---
History of Present Illness - Neuro Consultation Date of Consultation Date: 07/05/24 ED Arrival Date & Time: 07/05/24 11:17 Providers: Attending Provider: ED Provider: MARYANNE WATKINS Consulting Provider: LESTER DYKES DO cc:: The requesting physician will be sent a copy of the consult. - History of Present Illness HPI: The patient is a 38F Review of Systems - Review of Systems Review of Systems (Narrative): Pertinent positive and negative findings as per HPI. All other systems negative. - Past Medical History Past Medical History: Yes Neurological History: Migraines ENT History: No Pertinent History Cardiac History: No Pertinent History Respiratory History: No Pertinent History Endocrine Medical History: Other Musculoskelatal History: No Pertinent History GI Medical History: Colitis, GERD, Ulcer History: No Pertinent History Pyscho-Social History: Anxiety, Depression, Other Reproductive Disorders: Abnormal Uterine Bleeding, Fibroids, Menstrual Problems, Other Comment: migraine headaches- complex ( hx stroke like symptoms). chronic fatigue syndrome. ptsd - Female History Hx Last Menstrual Period: ablation Are you now?: No - Past Surgical History Past Surgical History: Yes Neuro Surgical History: No Pertinent History Cardiac History: No Pertinent History Respiratory Surgery: No Pertinent History GI Surgical History: Cholecystectomy Genitourinary Surgical Hx: No Pertinent History Musculskeletal Surgical Hx: Orthopedic Surgery Female Surgical History: Section, Tubal Ligation Other Surgical History: TONSILS AND ADENOIDS - "CRYO SURGERY" uterine ablation- CARPEL TUNNEL REPAIR- right. cysts removed off of ovaries. cysts removed left ear. tissue and skin graph to left ear from neck. c- section x3. Thyroidectomy. uterine ablation. carpel tunnel. Cyst removed from tailbone - Social History Smoking Status: Current every day smoker How long have you smoked: 20 yrs Exposure to second hand smoke: Yes Alcohol: Occasionally Drug Use: none - Social Determinants of Health Will the patient participate in the screening: Declined to provide Do you worry about a steady place to live?: No Do you have any problems with any of the following?: No known problems In the past 12 months,have you had to go without utilities?: No Have you or anyone in your house had to go without enough: No Transportation Issues: No Has anyone in your support network made you feel unsafe?: No Physical Exam - Vital Signs Vital Signs: Vital Signs - 24 hr 1107/05/24 07/05/24 11:17 11:30 12:01 Temperature 98.3 F Pulse Rate 116 H 99 H 107 H Respiratory 20 20 Rate Blood Pressure 129/87 108/80 Blood Pressure 131/94 [Right Arm] O2 Sat by Pulse 98 97 97 Oximetry 07/05/24 07/05/24 07/05/24 12:30 13:06 13:10 Temperature Pulse Rate Respiratory Rate Blood Pressure 134/88 Blood Pressure [Right Arm] O2 Sat by Pulse 97 97 Oximetry 07/05/24 07/05/24 07/05/24 13:21 13:22 13:23 Temperature Pulse Rate 74 Respiratory 18 Rate Blood Pressure 142/90 142/90 Blood Pressure [Right Arm] O2 Sat by Pulse 98 99 97 Oximetry 07/05/24 07/05/24 07/05/24 13:30 14:00 14:30 Temperature Pulse Rate 72 Respiratory 18 Rate Blood Pressure 126/84 125/84 130/86 Blood Pressure [Right Arm] O2 Sat by Pulse 92 L 98 98 Oximetry 07/05/24 07/05/24 14:55 15:02 Temperature Pulse Rate 70 Respiratory 18 Rate Blood Pressure Blood Pressure [Right Arm] O2 Sat by Pulse 97 98 Oximetry Results - Labs Lab/Micro Results: Lab Results-Last 24 Hours 07/05/24 07/05/24 07/05/24 Range/Units 12:14 12:14 12:14 WBC 10.2 H (3.98-10.04) x10^3/uL RBC 4.27 (3.93-5.22) x10^6/uL Hgb 12.8 (11.2-15.7) g/dL Hct 38.5 (34.1-44.9) % MCV 90.2 (79.4-94.8) fL MCH 30.0 (25.6-32.2) pg MCHC 33.2 (32.2-35.5) g/dL RDW 14.2 (11.7-14.4) % Plt Count 409 H (182-369) x10^3/uL MPV 8.4 L (9.4-12.3) fL Gran % 83.1 H (34.0-71.1) % Immature Gran % (Auto) 0.4 (0.001-0.429) % Nucleat RBC Rel Count 0.0 (0.00-0.2) % Eos # (Auto) 0.06 (0.04-0.36) x10^3/uL Immature Gran # (Auto) 0.04 H (0.001-0.031) x10^3u/L Absolute Lymphs (auto) 1.30 (1.18-3.74) x10^3/uL Absolute Monos (auto) 0.29 (0.24-0.86) x10^3/uL Absolute Nucleated RBC 0.00 (0.00-0.012) x10^3u/L Lymphocytes % 12.7 L (19.3-51.7) % Monocytes % 2.8 L (4.7-12.5) % Eosinophils % 0.6 L (0.7-5.8) % Basophils % 0.4 (0.1-1.2) % Absolute Granulocytes 8.47 H (1.56-6.13) x10^3/uL Basophils # 0.04 (0.01-0.08) x10^3/uL Sodium 141 (135-145) mmol/L Potassium 4.1 (3.5-5.1) mmol/L Chloride 107 (98-107) mmol/L Carbon Dioxide 20 L (22-30) mmol/L Anion Gap 18.0 H (5-15) MEQ/L BUN 8 (7-17) mg/dL Creatinine 0.63 (0.52-1.04) mg/dL Estimated GFR 114.9 ML/MIN Glucose 146 H (74-106) mg/dL Lactic Acid (0.4-2.0) Calcium 9.6 (8.4-10.2) mg/dL Total Bilirubin 0.30 (0.2-1.3) mg/dL AST 42 H (14-36) U/L ALT 38 H (0-35) U/L Alkaline Phosphatase 55 (38-126) U/L Serum Total Protein 8.0 (6.3-8.2) g/dL Albumin 4.8 (3.5-5.0) g/dL Amylase 72 (30-110) U/L Lipase 71 (23-300) U/L Serum HCG, Qual NEGATIVE (NEGATIVE) Urine Color (Yellow) Urine Appearance (Clear) Urine pH (4.6-8.0) Ur Specific [place] (1.005-1.030) Urine Protein (Negative) Urine Glucose (UA) (Negative) mg/dL Urine Ketones (Negative) Urine Blood (Negative) Urine Nitrite (Negative) Urine Bilirubin (Negative) Urine Urobilinogen (0.2) mg/dL Ur Leukocyte Esterase (Negative) U Hyaline Cast (Auto) (0-2) /LPF Urine Microscopic RBC (0-5) /HPF Urine Microscopic WBC (0-5) /HPF Ur Epithelial Cells (None Seen) /HPF Urine Bacteria (None Seen) /HPF Urine Culture Reflexed (NO) 07/05/24 07/05/24 Range/Units 12:17 13:22 WBC (3.98-10.04) x10^3/uL RBC (3.93-5.22) x10^6/uL Hgb (11.2-15.7) g/dL Hct (34.1-44.9) % MCV (79.4-94.8) fL MCH (25.6-32.2) pg MCHC (32.2-35.5) g/dL RDW (11.7-14.4) % Plt Count (182-369) x10^3/uL MPV (9.4-12.3) fL Gran % (34.0-71.1) % Immature Gran % (Auto) (0.001-0.429) % Nucleat RBC Rel Count (0.00-0.2) % Eos # (Auto) (0.04-0.36) x10^3/uL Immature Gran # (Auto) (0.001-0.031) x10^3u/L Absolute Lymphs (auto) (1.18-3.74) x10^3/uL Absolute Monos (auto) (0.24-0.86) x10^3/uL Absolute Nucleated RBC (0.00-0.012) x10^3u/L Lymphocytes % (19.3-51.7) % Monocytes % (4.7-12.5) % Eosinophils % (0.7-5.8) % Basophils % (0.1-1.2) % Absolute Granulocytes (1.56-6.13) x10^3/uL Basophils # (0.01-0.08) x10^3/uL Sodium (135-145) mmol/L Potassium (3.5-5.1) mmol/L Chloride (98-107) mmol/L Carbon Dioxide (22-30) mmol/L Anion Gap (5-15) MEQ/L BUN (7-17) mg/dL Creatinine (0.52-1.04) mg/dL Estimated GFR ML/MIN Glucose (74-106) mg/dL Lactic Acid 2.9 H (0.4-2.0) Calcium (8.4-10.2) mg/dL Total Bilirubin (0.2-1.3) mg/dL AST (14-36) U/L ALT (0-35) U/L Alkaline Phosphatase (38-126) U/L Serum Total Protein (6.3-8.2) g/dL Albumin (3.5-5.0) g/dL Amylase (30-110) U/L Lipase (23-300) U/L Serum HCG, Qual (NEGATIVE) Urine Color Yellow (Yellow) Urine Appearance Clear (Clear) Urine pH 6.5 (4.6-8.0) Ur Specific [place] <=1.005 (1.005-1.030) Urine Protein Negative (Negative) Urine Glucose (UA) Negative (Negative) mg/dL Urine Ketones Negative (Negative) Urine Blood Negative (Negative) Urine Nitrite Negative (Negative) Urine Bilirubin Negative (Negative) Urine Urobilinogen 0.2 (0.2) mg/dL Ur Leukocyte Esterase Negative (Negative) U Hyaline Cast (Auto) NONE SEEN (0-2) /LPF Urine Microscopic RBC 0-2 (0-5) /HPF Urine Microscopic WBC 0-2 (0-5) /HPF Ur Epithelial Cells None Seen (None Seen) /HPF Urine Bacteria None Seen (None Seen) /HPF Urine Culture Reflexed NO (NO) - Radiology Orders Radiology Orders: Radiology Procedures Category Date Time Status ABDOMEN AND PELVIS W/0 CONTRAS [CT] Stat Exams 07/05/24 11:47 Completed CERVICAL SPINE WO CONTRAST [CT] Stat Exams 07/05/24 11:47 Completed CHEST 1 VIEW (PORTABLE) Stat Exams 07/05/24 11:49 Completed HAND (MINIMUM 3 VIEWS) Stat Exams 07/05/24 11:49 Completed HEAD WITHOUT CONTRAST [CT] Stat Exams 07/05/24 11:46 Completed LOWER EXTREMITY WO CONTRAST [CT] Stat Exams 07/05/24 11:47 Completed MRI BRAIN W & W/O CONTRAST [MRI] Stat Exams 07/05/24 14:44 Ordered NECK WITH CONTRAST [CT] Stat Exams 07/05/24 15:09 Ordered UPPER EXTREMITY W/O CONTRAST [CT] Stat Exams 07/05/24 11:48 Completed Impressions & Recommendations - ED Arrival Time ED Arrival Date & Time: ED Arrival Date and Time 07/05/24 11:17 Last known well time: - NIHSS IV Thrombolysis Standard of Care: IV thrombolysis as a standard of care in acute stroke discussed with MARYANNE WATKINS. Risk, benefits, and options of IV thrombolytic therapy for acute ischemic stroke were discussed with the patient/family CARRIE VALENCIA. We discussed that use of IV tenecteplase is in line with national stroke guidelines. We discussed that risks of IV thrombolytic use include intracranial hemorrhage, other fatal bleeding risks, and angioedema. Alternatives of treatment, including not proceeding with thrombolytic therapy were discussed. - Recommendations Recommendations: -Neuro checks, NIHSS, vital signs monitoring as per post tenecteplase protocol -Repeat non contrast head CT or noncontrast MRI brain 24 hours after IV thrombolyltic administration. -Obtain STAT non contrast head CT if there are new neurological deficits, worsening of current deficits, or with complaint of severe headache. Notify Neurology JAQUAN of changes in neurological exam. -Nicardipine gtt as needed to maintain BP< 180/105 x 24hr post tenecteplase administration. -Monitor for angioedema -SCD's for DVT prophylaxis. Work up: -Basic labs (CBC, BMP, TSH+T4) if not done already. -INR,PTT if not done already -Fasting Lipid Panel and Hgb A1c -Transthroacic echocardiogram [with bubble study] -EKG + Telemetry- monitor for A-FIB Secondary Stroke Prevention -Hold off on antiplatelet therapy x 24 hr post IV thrombolytic therapy Decision to initiate antiplatelet therapy, or anticoagulation if needed, will be based on repeat imaging at 24 hour post thrombolytic administration. -If not medical contraindication, start high intensity statin. Eg. Atrovastatin 80 mg daily Risk Factor Management -HTN control: BP <180/105 for first 24 hr post tenecteplase -If diabetic, optimize glucose control: fci goal HgA1c <7 -HLD control: Long-term goal LDL <70. High intensity statin recommended. Moderate intensity statin in patients > 75 years. -Smoking Alcohol Use Drug use cessation counseling Stroke Rehabilitation: -Physical therapy, occupational therapy, speech therapy consults -Social work and case management consults for help with discharge needs. Impression and recommendation were discussed with MRAYANNE Serrano Thank you for allowing us to participate in this patient's care. Please call [facility] with questions, concerns, or change in patient's neurological status. This consult was performed via secure telemedicine audio/visual platform with [ ] RN assisting at bedside. Patient identity verified and consent obtained. TIQ recieved at [ ] Neuro Cart Time: Delays in Patient Encounter: Assessment & Plan - Encounter Encounter: "The entirety of this encounter was performed via Telemedicine using audio and visual "
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
[2024-07-05 17:49] VITALS: BP 129/84; PULSE 84; RESP 18; O2SAT 97
[2024-07-05] MEDS ORDERED: Hydromorphone 1 mg/ml Injection ONE (17:56)
[2024-07-05] MEDS: Hydromorphone 1 mg/ml Injection IV ONE (17:57)
[2024-07-05] MEDS ORDERED: NORCO 5/325 MG ONE (18:48)
[2024-07-05] MEDS: NORCO 5/325 MG PO ONE (19:09)
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
== END 2024-07-05 19:34 | disposition home or self-care (01) ==
LOC: ED 11:17
DX: S49.92XA Unspecified injury of left shoulder and upper arm, initial encounter (principal); S79.912A Unspecified injury of left hip, initial encounter; V89.2XXA Person injured in unspecified motor-vehicle accident, traffic, initial encounter; H53.2 Diplopia; F07.81 Postconcussional syndrome; J84.10 Pulmonary fibrosis, unspecified; N20.0 Calculus of kidney; R51.9 Headache, unspecified; M54.2 Cervicalgia; R07.9 Chest pain, unspecified; R10.9 Unspecified abdominal pain; Z79.52 Long term (current) use of systemic steroids; Z79.899 Other long term (current) drug therapy; Z72.0 Tobacco use; Z23 Encounter for immunization
CPT/HCPCS: 36000; 36415; 70450; 70496; 70498; 70553; 71045; 72125; 73130; 73200; 73700; 74176; 80053; 81001; 82150; 83605; 83690; 84703; 85025; 90471; 96374; 99285; Q3014; 90715; J1171; A9270-GY

== ENCOUNTER 2024-07-22 08:19 | Day surgery (SDC) | payer OTHER ==
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
[2024-07-22] MEDS ORDERED: Lactated Ringers 1,000 ML IV ONE (08:29)
[2024-07-22 08:31] LABS: HCG URINE TEST NEGATIVE (NEGATIVE)
[2024-07-22] MEDS: Lactated Ringers 1,000 ML IV SCH (08:33)
[2024-07-22] MEDS ORDERED: Sensorcaine 0.25% 10 ML ONE (08:35)
[2024-07-22 08:49] VITALS: RESP 16; TEMP 96.9
[2024-07-22] MEDS ORDERED: CLINDAMYCIN-D5W 900 MG/50 ML*** 900 MG/50 ML BAG IV ONE (09:20)
[2024-07-22] MEDS: CLINDAMYCIN-D5W 900 MG/50 ML*** 900 MG/50 ML BAG IV ONE (09:23)
[2024-07-22] MEDS ORDERED: Reglan 10 MG/2 ML ONE (10:12)
[2024-07-22] MEDS ORDERED: Pepcid 20 MG VIAL IV ONE (10:12)
[2024-07-22] MEDS: Pepcid 20 MG VIAL IV ONE (10:13)
[2024-07-22] MEDS: Reglan 10 MG/2 ML IV ONE (10:13)
[2024-07-22] MEDS ORDERED: SUBLIMAZE 100 MCG/2 ML ONE ×2 (11:01→12:22)
[2024-07-22] MEDS ORDERED: Versed 2 MG/2 ML Injection ONE (11:01)
[2024-07-22] MEDS ORDERED: DIPRIVAN 200 MG/20 ML IV ONE (11:01)
[2024-07-22] MEDS ORDERED: Quelicin Fliptop 200 MG/10 ML ONE (11:01)
[2024-07-22] MEDS ORDERED: Zofran 4 MG/2 ML VIAL ONE (12:33)
[2024-07-22 13:06] VITALS: BP 108/78; PULSE 74; O2SAT 98
--- NOTE | 2024-07-24 09:04 | OP ---
SURGERY DATE/TIME: 07/22/2024 [id number] PREOPERATIVE DIAGNOSIS: History of draining large ruptured cyst site preauricular on the right. POSTOPERATIVE DIAGNOSIS: History of draining large ruptured cyst site preauricular on the right. PROCEDURE: Excisional biopsy of preauricular cyst site (approximately 1.8 cm.) SURGEON: Ed Sanchez MD ANESTHESIA: General. ESTIMATED BLOOD LOSS: Minimal. INDICATIONS: Consent obtained. DESCRIPTION OF PROCEDURE AND FINDINGS: The patient was taken to the operating room. General anesthesia was induced. Site had been confirmed in preop holding area and marked. She was prepped and draped in usual sterile fashion. After official time-out, no disagreement with planned procedure. Spindle shape of the skin overlying the area where some pits were. Dissection carried down through normal subq down to the underlying normal subq below this indurated area, measured 1.8 to 2 cm in size, passed off for pathology. Good hemostasis was noted. Subcutaneous was closed with 4-0 Vicryl, skin closed with 5-0 Prolene in subcuticular fashion. Steri-Strips, sterile dressing applied. The patient tolerated the procedure well. There were no immediate complications. I went out to the waiting room to discuss findings with family.
== END 2024-07-22 13:20 | disposition home or self-care (01) ==
LOC: SDC 08:19
PROVIDERS: ATTEND Surgery
DX: L72.0 Epidermal cyst (principal); Q18.1 Preauricular sinus and cyst
CPT/HCPCS: 81025; 88304; J0330; J2250; J2405; J2704; J3010